=== PATIENT | female | born 1935 | race Caucasian/White ===

== ENCOUNTER → 2017-12-22 14:35 | Outpatient (CLI) | payer MEDICARE, SELFPAY ==
--- NOTE | 2017-12-22 15:14 | ECHOD_ITS ---
Version 2 Reason For Study: dyspnea/SOB Procedure This was a 2D Doppler, Color Flow transthoracic echocardiogram. Exam performed in department. PT was seen by Dr. Valerio re: BP 196/94. Left Ventricle Normal LV size. Sigmoid septum. Left ventricular systolic function is normal. The estimated ejection fraction is 60 %. Transmitral and pulmonary venous doppler flow suggestive of elevated left atrial pressure. Transmitral diastolic flow velocities suggest mild (stage 1) diastolic dysfunction (reversed pattern). No regional wall motion abnormalities noted. Right Ventricle Normal RV size. Normal systolic function. Atria Normal left atrium. Normal right atrium. Mitral Valve Normal mitral valve. Mild-Moderate (1-2+) eccentric mitral valve insufficiency. Tricuspid Valve Normal tricuspid valve. Trivial tricuspid valve insufficiency. Aortic Valve Trisinus/trileaflet aortic valve. Mild focal aortic valve calcification. Peak aortic valve gradient 20 mmHg. Mean aortic valve gradient 11 mmHg. Mild aortic stenosis. Pulmonic Valve Normal pulmonic valve. Great Vessels Normal aortic root. The pulmonary artery is normal size. Normal inferior vena cava. Pericardium/Pleural No pericardial effusion. MMode/2D Measurements & Calculations LVIDd: 4.0 cm IVSd: 1.6 cm LVOT diam: 2.2 cm LVIDs: 3.0 cm LVPWd: 1.2 cm LVOT area: 4.0 cm2 RVDd: 2.7 cm FS: 24.4 % Ao root diam: 2.8 cm LAV(MOD-bp): 73.6 ml Aortic Valve Planimetry: 2.0 cm2 LA dimension: 4.4 cm LAV(MOD-bp) Indexed: 37.1 ml/m2 LAV(MOD-sp2): 63.4 ml LAV(MOD-sp4): 70.1 ml LA A4 area: 19.3 cm2 RA A4 area: 14.2 cm2 Time Measurements MV dec time: 0.15 sec Doppler Measurements & Calculations MV E max juan: 82.9 cm/sec Lat Peak E' Juan: 5.4 cm/sec Med Peak E' Juan: 3.8 cm/sec MV A max juan: 128.2 cm/sec E/E' lat: 15.3 E/E' med: 21.8 MV E/A: 0.65 Ao V2 max: 227.2 cm/sec LV V1 max: 116.1 cm/sec SV(LVOT): 100.7 ml Ao max P.7 mmHg LV V1 max P.4 mmHg Ao V2 mean: 161.0 cm/sec LV V1 mean P.0 mmHg Ao mean P.3 mmHg LV V1 mean: 82.4 cm/sec Ao V2 VTI: 47.1 cm LV V1 VTI: 25.4 cm MICHALE(I,D): 2.1 cm2 MICHAEL(V,D): 2.0 cm2 PA V2 max: 84.4 cm/sec TR max juan: 183.8 cm/sec TR max P.5 mmHg Interpretation Summary Normal LV size. Sigmoid septum. Left ventricular systolic function is normal. The estimated ejection fraction is 60 %. Mild focal aortic valve calcification. Mild aortic stenosis. Transmitral diastolic flow velocities suggest mild (stage 1) diastolic dysfunction (reversed pattern). Ordering Physician: Alejandro Valerio Referring Physician: Kwadwo Ambriz Performed By: Alejandrina Flannery RDCS, RVT
--- NOTE | 2017-12-22 15:16 | RAD_ITS ---
STUDY: X-RAY CHEST REASON FOR EXAM: Female, 82 years old. Shortness of breath and dyspnea. TECHNIQUE: PA and lateral views of the chest. COMPARISON: None. FINDINGS: There is hyperinflation of the lungs consistent with chronic obstructive lung disease (COPD). Lungs are clear. There is no demonstrated pleural abnormality. There is mild cardiac enlargement. Normal mediastinum and porfirio. Normal visualized pulmonary arteries. Normal visualized aortic arch and descending thoracic aorta. There are diffuse degenerative changes of the visualized thoracic spine. There is degenerative osteoarthritis of the bilateral shoulders. There is no demonstrated abnormality of the visualized soft tissue structures of the upper abdomen. RAD/Chest PA and Lateral IMPRESSION: No acute cardiopulmonary disease Electronically Signed: Morales Martinez DO at 16:01 EDT Tel , Service support ,
[2017-12-22 15:34] LABS: Absolute Lymphocyte Count 1.72 X10^3/ul (0.83-4.51); Absolute Neutrophil Count 4.1 X10^3/uL (2.0-7.7); Basophil# 0.04 X10^3/uL; Basophil% 0.6 % (0-1); Eosinophil# 0.14 X10^3/uL; Hematocrit 45.8 % (37-47); Hemoglobin 15.2 g/dl (12.0-15.0); Lymphocyte # 1.72 X10^3/ul (4.0); Mean Corp Hgb Conc 33.2 g/gl (32-36); Mean Corpuscular Hgb 29.7 pg (27.0-32.0); Mean Corpuscular Volume 89.5 fL (81-99); Mean Platelet Vol. 10.9 fl (6.2-12.0); Monocyte# 0.88 X10^3/uL; Monocyte% 12.8 % (0-10); Neutrophil # 4.09 X10^3/uL (2.7-7.7); Neutrophil % 59.3 % (47-70); Platelet Count 201 K/mm3 (150-450); RBC Distribution Width CV 13.7 % (11.6-14.6); RBC Distribution Width SD 44.3 fl (35.1-43.9); Red Blood Count 5.12 M/mm3 (4.2-5.4); White Blood Count 6.9 K/mm3 (4.4-11.0)
[2017-12-22 15:35] LABS: POSITIVE COUNT NO; POSITIVE DIFFERENTIAL NO; POSITIVE MORPHOLOGY NO
[2017-12-22 16:14] LABS: BNP,B-Type NATRIURETIC PEPTIDE 128.7 pg/mL (0-100)
[2017-12-22 16:15] LABS: Anion Gap 6 (5-15); BUN 20 mg/dL (7-18); BUN/Creat Ratio 22.9 RATIO (10-20); Calcium,Total 8.9 mg/dL (8.5-10.1); Chloride 103 mmol/L (98-107); Creatinine, Serum 0.88 mg/dL (0.55-1.02); EST Glomerular Filtration Rate 66 mL/min (>60); Est Glom Filt Rate - Afr Amer 80 mL/min (>60); Glucose 95 mg/dL (74-106); Potassium 3.3 mmol/L (3.5-5.1); Sodium Level 139 mmol/L (136-145)
[2017-12-22 16:30] LABS: International Normalized Ratio 1.1
== END ==
PROVIDERS: Family Provider Family Medicine; PCP Family Medicine; Visit Provider Internal Medicine Cardiovascular Disease
DX: R06.00 Dyspnea, unspecified (principal); R06.01 Orthopnea; R06.02 Shortness of breath
CPT/HCPCS: 36415; 71046; 80048; 83880; 85025; 85610; 93306

== ENCOUNTER 2017-12-23 06:46 | Day surgery (SDC) | payer MEDICARE, SELFPAY ==
[2017-12-22 09:41] VITALS: BMI 35.6
[2017-12-23] VITALS (17 sets, daily range): BP systolic 121–179; BP diastolic 65–128; PULSE 67–81; RESP 12–25; TEMP 36.3–37; O2SAT 93–97; BMI 34.3
--- NOTE | 2017-12-23 08:29 | CL.D_ITS ---
Patient Name: DAVID ROMERO Study Date: 12/23/2017 Performing: Alejandro Valerio MD Ht: 64.17 inches 163 cm : 1935 Wt: 207.23 lbs 94 kg Age: 82 Gender: female BSA: 1.99 PROCEDURE(S) PERFORMED NE16-GKU/COR/LV CLINICAL PROFILE AND INDICATIONS INDICATIONS: Stable Angina CCS Class I Stress/Imaging Standard Exercise Stress Test: Yes Result: Positive High Risk Angina Classification Anginal Classification w/in 2 Weeks: CCS II CAD Presentations: Stable angina. CONCLUSIONS Severe coronary artery disease involving the mid left anterior descending artery and a large proximal diagonal branch. RECOMMENDATIONS Referred for immediate PCI DESCRIPTION OF PROCEDURE The patient arrived to the procedure lab. The risks and benefits of the procedure as well as a full d escription of our services here and current unavailability of surgical backup were fully explained to the patient and/or their significant other prior to the catheterization. The Timeout was completed, verifying the correct patient and procedure. The patient's procedural site was prepped and draped in the usual fashion. Local anesthetic was given subcutaneously to right groin region with Lidocaine 2%. Using a modified Seldinger technique, arterial access was obtained via the right femoral artery, a 5 Fr sheath was inserted. Left Coronary Artery selective angiography was performed in multiple views u sing a 5 Fr. JL4 catheter. Right Coronary Artery selective angiography was then performed in multiple views using a 5 Fr. 3DRC (Jason) catheter. Left Ventriculography was performed in OLIVARES projection using a 5 Fr. Pigtail catheter. LV to AO pullback pressures were then recorded. CORONARY ANGIOGRAPHY DOMINANCE: Right Dominant LEFT HEART ASSESSMENT Left Ventricular Ejection Fraction: by LV Gram 60 % Normal LV wall motion Normal Left Ventricular systolic function LEFT MAIN: Angiographically normal LEFT ANTERIOR DECENDING ARTERY: MID LAD: 80 % Stenosis DIAGONAL 1: Ostial - 80 % Stenosis, Proximal - 90 prior to trifurcation COMPLICATIONS PROCEDURE MEDICATIONS Versed 0.5 mg IV Versed 0.5 mg IV Oxygen: 2 L/min via nasal cannula SUMMARY OF HEMODYNAMIC DATA Time AIR REST ECG 07:26:21 AO 193/101 (141) SA 08:05:23 LV 196/0, 24 08:11:44 LV 200/0, 22 08:11:50 LV 194/1, 24 08:12:44 LVp 198/-1, 24 08:12:59 AOp 193/86 (129) 08:13:04 Signed By Alejandro Valerio MD On 12/23/2017 08:29:05 Alejandro Valerio MD
--- NOTE | 2017-12-23 09:53 | CL.I_ITS ---
Patient Name: DAVID ROMERO Study Date: 12/23/2017 Performing: Adan Mclean MD Ht: 64.17 inches 163 cm : 1935 Wt: 207.23 lbs 94 kg Age: 82 Gender: female BSA: 1.99 PROCEDURE(S) PERFORMED [id number] W OR WO PTCA, SINGLE CORONARY ARTERY [id number] W OR WO PTCA, EACH ADD'L ARTERY, SAME MAJOR CLINICAL PROFILE AND CO-MORBIDITIES INDICATIONS: Stable Angina CCS Class I Stress/Imaging Standard Exercise Stress Test: Yes Result: Positive High Risk Angina Classification Anginal Classification w/in 2 Weeks: CCS II CAD Presentations: Stable angina. CONCLUSIONS Successful PTCA/ALEXUS of the to mid DIAG inferior branch with 2.25 x 12 Promus Synergy, post dilated wi th a 2.25 x 8 NC balloon: 85%-->0%, no dissection. Successful PCI with PTCA to the superior branch of diag#1 at bifurcation of diag stent with a 2.0 x 8 Balloon; 75%-->30%, no dissection. Successful PTCA/ALEXUS of the mid LAD with a 3.0 x 12 Promus Synergy, post dilated proximally with a 3.5 x 8 NC Balloon; 75%-->0%, no dissection. Successful PCI with PTCA to the ostial DIAG#1 with a 2.5 x 8 Balloon; 75%-->30%, no dissection. RECOMMENDATIONS Highly recommend quitting all tobacco products Follow up with primary swat team member Risk factor modification ASA Indefinitley Plavix for at least 12 months Routine post interventional care Refer for Outpatient Cardiac Rehab Manual sheath removal per protocol Follow up with Dr. Valerio Successful Mynx closure into RFA. DESCRIPTION OF PROCEDURE The patient arrived to the procedure lab. The risks and benefits of the procedure as well as a full d escription of our services here and current unavailability of surgical backup were fully explained to the patient and/or their significant other prior to the catheterization. The Timeout was completed, verifying the correct patient and procedure. The patient's procedural site was prepped and draped in the usual fashion. Local anesthetic was given subcutaneously to right groin region with Lidocaine 2% Using a modified Seldinger technique,arterial access was obtained via the right femoral artery, a 5Fr sheath was inserted. Left Coronary Artery selective angiography was performed in multiple views usin g a 5 Fr. JL4 catheter. Right Coronary Artery selective angiography was then performed in multiple vi ews using a 5 Fr. 3DRC (Jason) catheter. Left Ventriculography was performed in OLIVARES projection usi ng a 5 Fr. Pigtail catheter. LV to AO pullback pressures were then recorded.The images were reviewed and options discussed. A decision was then made to proceed with an Intervention, IVUS or other adjunc t procedure. Arterial sheath was exchanged for a 6 Fr Sheath EBU03.75 Guide catheter was inserted and engaged into the LCA. BMW Guide wire was advanced to the 2nd Diagonal. 2.00X8 EMERGE Balloon catheter was inserte d. Balloon catheter was advanced across lesion in the first diagonal, mid PTCA balloon inflated at 6 atms for 6 secs PTCA balloon inflated at 6 atms for 13 secs PTCA balloon inflated at 10 atms for 12 s ecs Balloon catheter was repositioned to additional lesion in the first diagonal, ostial. PTCA balloo n inflated at 6 atms for 6 secs BMW Guide wire was inserted as a lucio wire TO DIAG 1 SUPERIOR BRANCH 2.0X8 EMERGE Balloon catheter was inserted. Balloon catheter was advanced across lesion in the first diagonal, mid. PTCA balloon inflated at 6 atms for 15 secs 2.25X12 SYNERGY Drug Eluting stent was in serted Drug Eluting stent was advanced across the lesion in the first diagonal, mid. 2.25X8 NC EMERGE Balloon catheter was inserted post stent. Angiogram performed post balloon dilatation. 2.25X8 NC ALFA RGE Balloon catheter was reinserted BMW Guide wire was repositioned to the 1st Diagonal SUPERIOR BRAN CH BMW Guide wire was repositioned to the LAD 2.00X8 EMERGE Balloon catheter was inserted. Balloon ca theter was advanced across lesion in the first diagonal, SUPERIOR BRANCH PTCA balloon inflated at 6 a tms for 12 secs Angiogram performed post balloon dilatation. 2.00X8 EMERGE Balloon catheter was inser justice. Balloon catheter was advanced across lesion in the LAD, mid. PTCA balloon inflated at 12 atms fo r 10 secs 3.00X12 SYNERGY Drug Eluting stent was inserted Drug Eluting stent was advanced across the lesion in the LAD, mid. 3.5X8 NC EMERGE Balloon catheter was inserted post stent. BMW Guide wire was repositioned to the 1st Diagonal 2.50X8 EMERGE Balloon catheter was inserted. Balloon catheter was ad vanced across lesion in the first diagonal, ostial. BMW Guide wire was repositioned to the LAD FROM D IAG 1 SUPERIOR BRANCH PTCA balloon inflated at 6 atms for 45 secs PTCA balloon inflated at 6 atms for 10 secs Angiogram performed post balloon dilatation.. . The arterial sheath was pulled and a Mynx c losure device was deployed for hemostasis. INTERVENTION INFORMATION LESION SITE: 2nd Diagonal (Mid) Lesion Complexity: High/C, lesion at bifurcation: Yes, thrombus present: No, lesion length: 12 mm, cu lprit lesion: Yes Pre Stenosis: 85 % Pre intervention ABIEL flow: 3 PROCEDURE: Drug Eluting Stent with pre and post dilatation Post Stenosis: 0 % Post intervention ABIEL flow: 3 Lesion Devices: Tse .014 BMW [place] Straight 190cm Tse .014 BMW [place] Straight 190cm Medtronic 6 Fr EBU3.75 100cm Guide Catheter Jac Sci EMERGE MR 2.00x08 BALLOON Jac Sci Synergy MR ALEXUS 2.25x12 Jac Sci NC EMERGE MR 2.25x08 BALLOON LESION SITE: 1st Diagonal (Ostial) Lesion Complexity: High/C, lesion at bifurcation: Yes, thrombus present: No, culprit lesion: No Pre Stenosis: 75 % Pre intervention ABIEL flow: 3 PROCEDURE: Drug Eluting Stent with pre and post dilatation Post Stenosis: 0 % Post intervention ABIEL flow: 3 Lesion Devices: Tse .014 BMW [place] Straight 190cm Tse .014 BMW [place] Straight 190cm Medtronic 6 Fr EBU3.75 100cm Guide Catheter Jac Sci EMERGE MR 2.00x08 BALLOON Jac Sci EMERGE MR 2.50x08 BALLOON LESION SITE: LAD (Mid) Lesion Devices: Tse .014 BMW [place] Straight 190cm Tse .014 BMW [place] Straight 190cm Medtronic 6 Fr EBU3.75 100cm Guide Catheter Jac Sci EMERGE MR 2.00x08 BALLOON Jac Sci Synergy MR ALEXUS 3.00x12 Jac Sci NC EMERGE MR 3.50x08 BALLOON COMPLICATIONS No Complications PROCEDURE MEDICATIONS Versed 0.5 mg IV Versed 0.5 mg IV Oxygen: 2 L/min via nasal cannula Heparin 6000 unit(s) IV 12/23/2017 08:37:04 Nitro 200 mcg IC 12/23/2017 08:39:08 Nitro glycerin 25mg / 250ml D5W @ 5 mcg/min IV started 12/23/2017 08:46:44 Nitro 200 mcg IC 12/23/2017 08:50:20 Nitro 200 mcg IC 12/23/2017 09:05:10 Nitro 200 mcg IC 12/23/2017 09:12:38 Nitro 200 mcg IC 12/23/2017 09:20:55 IV Bolus: .9 NaCl 250 ml total 12/23/2017 09:31:08 SUMMARY OF HEMODYNAMIC DATA Time AIR REST ECG 07:26:21 AO 193/101 (141) SA 08:05:23 LV 196/0, 24 08:11:44 LV 200/0, 22 08:11:50 LV 194/1, 24 08:12:44 LVp 198/-1, 24 08:12:59 AOp 193/86 (129) 08:13:04 AO 213/106 (152) 08:38:09 Signed By Adan Mclean MD On 12/23/2017 9:52:55 AM Adan Mclean MD
--- NOTE | 2017-12-23 10:00 | EKG12_ITS ---
Test Reason : POST PCI Blood Pressure : / mmHG Vent. Rate : 077 BPM Atrial Rate : 077 BPM P-R Int : 214 ms QRS Dur : 140 ms QT Int : 476 ms P-R-T Axes : 065 -76 061 degrees QTc Int : 538 ms Sinus rhythm with 1st degree A-V block Right bundle branch block Left anterior fascicular block Bifascicular block Voltage criteria for left ventricular hypertrophy Abnormal ECG Confirmed by LUAN SHIELDS, ERIN ([id number]), newspaper editor NOÉ ROBERTS ([id number]) on 12/25/2017 2:51:28 PM Referred By: Erin Valerio Confirmed By:ERIN VALERIO MD
[2017-12-23] MEDS: 0.9% Normal Saline 1,000 ML 150 ML IV (10:15)
[2017-12-23 10:51] LABS: ACT Activated Clotting Time 241 sec (74-137)
[2017-12-23 11:00] LABS: Mean Corp Hgb Conc 31.8 g/gl (32-36); Mean Corpuscular Hgb 29.2 pg (27.0-32.0); Mean Corpuscular Volume 91.7 fL (81-99); Mean Platelet Vol. 10.6 fl (6.2-12.0); Platelet Count 189 K/mm3 (150-450); RBC Distribution Width CV 13.5 % (11.6-14.6); RBC Distribution Width SD 44.8 fl (35.1-43.9); Scan Indicated on CBC? Y/N NO; White Blood Count 7.5 K/mm3 (4.4-11.0)
[2017-12-23 11:16] LABS: CPK Total, Creatine Kinase 53 U/L (26-192)
[2017-12-23 13:14] LABS: M R Staph aureus DNA By PCR Negative (Negative); Probe Check PASS; Specimen Processing Control PASS
--- NOTE | 2017-12-23 13:27 | CRPHASE1 ---
Patient Data/Charges Former Patient:: Phase I Racebook Writer:: Adan Mclean Phase I Charge:: Level I - Education Risk Factors/Lifestyle Smoking Status: Never smoker Hx Hypertension: Yes - ON MEDS Hx Diabetes Mellitus Type 2: No Post-Menopausal: Yes ETOH: No Caffeine: Yes Substance Abuse: No Risk Factor for Sedentary Lifestyle: Lowest Risk Family History: Family History (Last Reviewed 12/16/17 @ 15:12 by Alejandro Valerio MD) Mother Myocardial infarction Father Heart disease Phase I Education Given On:: [place], Nutrition, Antiplatelet medication, CHF Issues Affecting Care:: None Knowledge of Condition:: Yes Hospital Course Pain Description: Tightness Pain Intensity: 2 Cardiac Cath Date:: 12/23/17 Medical/Surgical History WI:: No Angina:: Yes CAD:: No Cardiomyopathy:: No Valve Disease/Replacement:: No Pulmonary:: No COPD:: No Asthma:: No DAMIEN:: No Diabetes:: No Hypertension:: Yes - MEDS Dyslipidemia:: No Arrhythmias:: No Arthritis:: No GI:: Yes GERD:: Yes - TAKES TUMS Cancer:: No Renal:: No Thyroid:: No Depression:: No Anxiety:: No Discharge/Home/Social Eval Discharge Disposition: Home Marital Status: -
--- NOTE | 2017-12-23 13:33 | CRPHASE1_ITS ---
Patient Data/Charges Former Patient:: Phase I Community Education Coordinator:: Adan Mclean Phase I Charge:: Level I - Education Risk Factors/Lifestyle Smoking Status: Never smoker Hx Hypertension: Yes - ON MEDS Hx Diabetes Mellitus Type 2: No Post-Menopausal: Yes ETOH: No Caffeine: Yes Substance Abuse: No Risk Factor for Sedentary Lifestyle: Lowest Risk Family History: Family History (Last Reviewed 12/16/17 @ 15:12 by Alejandro Valerio MD) Mother Myocardial infarction Father Heart disease Phase I Education Given On:: [place], Nutrition, Antiplatelet medication, CHF Issues Affecting Care:: None Knowledge of Condition:: Yes Hospital Course Pain Description: Tightness Pain Intensity: 2 Cardiac Cath Date:: 12/23/17 Medical/Surgical History PR:: No Angina:: Yes CAD:: No Cardiomyopathy:: No Valve Disease/Replacement:: No Pulmonary:: No COPD:: No Asthma:: No DAMIEN:: No Diabetes:: No Hypertension:: Yes - MEDS Dyslipidemia:: No Arrhythmias:: No Arthritis:: No GI:: Yes GERD:: Yes - TAKES TUMS Cancer:: No Renal:: No Thyroid:: No Depression:: No Anxiety:: No Discharge/Home/Social Eval Discharge Disposition: Home Marital Status: -
--- NOTE | 2017-12-23 13:34 | CRPH1.INSTRU ---
General Education CAD and cardiac anatomy and function:: Patient communicates acknowledgment Explanation of diagnoses and procedures:: Patient communicates acknowledgment Sign/Symptoms of MT:: Patient communicates acknowledgment Antiplatelet therapy: Patient communicates acknowledgment Proper use of NTG-SL: Patient communicates acknowledgment Emergency procedures and activation of EMS: Patient communicates acknowledgment Compliance of all prescribed medications: Patient communicates acknowledgment Smoking Patient Nicotine/Smoking Risk Factors Are:: Never smoked Dyslipidemia Recommendations Include:: Lipid profile not available Overweight/Obesity Patient Overweight/Obesity Risk Factors Are:: Overweight = 26-29 Overweight/Obesity:: Patient communicates acknowledgment Hypertension Recommendations Include:: Maintain BP <130/85 Hypertension:: Patient communicates acknowledgment Heart Disease Patient Heart Disease Risk Factors Are:: Family history of heart disease < 65 years old Heart Disease Response Code:: Patient communicates acknowledgment Diabetes Patient Diabetes Risk Factors Are:: No documented hx of diabetes Metabolic Syndrome Patient Metabolic Syndrome Risk Factors Are [3 of 5]:: Hypertension Recommendations Include:: Does not meet criteria Metabolic Syndrome Response Code:: Patient communicates acknowledgment Sedentary Recommendations Include:: Benefits of regular exercise, Discussed home walking program Sedentary Response Code:: Patient communicates acknowledgment Stress Patient Stress Risk Factors Are:: Patient denies stress as a risk factor
[2017-12-23 17:13] LABS: Hematocrit 42.4 % (37-47); Hemoglobin 13.4 g/dl (12.0-15.0); Mean Corp Hgb Conc 31.6 g/gl (32-36); Mean Corpuscular Hgb 29.1 pg (27.0-32.0); Mean Corpuscular Volume 92.2 fL (81-99); Mean Platelet Vol. 10.8 fl (6.2-12.0); Platelet Count 188 K/mm3 (150-450); RBC Distribution Width CV 13.7 % (11.6-14.6); RBC Distribution Width SD 46.1 fl (35.1-43.9); White Blood Count 8.6 K/mm3 (4.4-11.0)
[2017-12-23 17:14] LABS: CPK Total, Creatine Kinase 54 U/L (26-192); Scan Indicated on CBC? Y/N NO
[2017-12-23] MEDS: amLODIPine 5 MG Tablet PO (20:59)
[2017-12-23] MEDS: Atorvastatin Calcium 20 MG Tablet PO (20:59)
[2017-12-23 21:19] LABS: Hematocrit 41.5 % (37-47); Hemoglobin 13.5 g/dl (12.0-15.0); Mean Corp Hgb Conc 32.5 g/gl (32-36); Mean Corpuscular Hgb 29.7 pg (27.0-32.0); Mean Corpuscular Volume 91.4 fL (81-99); Mean Platelet Vol. 10.5 fl (6.2-12.0); Platelet Count 176 K/mm3 (150-450); RBC Distribution Width CV 13.7 % (11.6-14.6); RBC Distribution Width SD 44.9 fl (35.1-43.9); Red Blood Count 4.54 M/mm3 (4.2-5.4); White Blood Count 8.7 K/mm3 (4.4-11.0)
[2017-12-23 21:42] LABS: CPK Total, Creatine Kinase 48 U/L (26-192)
[2017-12-23 21:54] LABS: Scan Indicated on CBC? Y/N NO
[2017-12-24] VITALS (9 sets, daily range): BP systolic 140–195; BP diastolic 59–90; PULSE 78–94; RESP 17–22; TEMP 36.5–36.9; O2SAT 92–98
[2017-12-24] MEDS: Acetaminophen 325 MG Tablet 650 MG PO (00:50)
[2017-12-24] MEDS: Nitroglycerin Oint 1 INCH PACKET TRANSDERM. (00:50)
[2017-12-24 04:49] LABS: Hematocrit 40.2 % (37-47); Mean Corp Hgb Conc 32.3 g/gl (32-36); Mean Corpuscular Hgb 29.5 pg (27.0-32.0); Mean Corpuscular Volume 91.4 fL (81-99); Mean Platelet Vol. 10.5 fl (6.2-12.0); Platelet Count 171 K/mm3 (150-450); RBC Distribution Width CV 13.6 % (11.6-14.6); RBC Distribution Width SD 45.4 fl (35.1-43.9)
[2017-12-24 04:52] LABS: Scan Indicated on CBC? Y/N NO
[2017-12-24 05:03] LABS: Anion Gap 6 (5-15); BUN 15 mg/dL (7-18); BUN/Creat Ratio 17.3 RATIO (10-20); Calcium,Total 8.2 mg/dL (8.5-10.1); Chloride 106 mmol/L (98-107); Cholesterol 116 mg/dL (200); Creatinine, Serum 0.86 mg/dL (0.55-1.02); EST Glomerular Filtration Rate 67 mL/min (>60); Est Glom Filt Rate - Afr Amer 81 mL/min (>60); Estimated Creatinine Clearance 46.95 ml/min; Glucose 106 mg/dL (74-106); High Density Lipoprotein 36 mg/dL; Potassium 3.9 mmol/L (3.5-5.1); Sodium Level 141 mmol/L (136-145); Triglycerides 74 mg/dL; Very Low Density Lipoprotein 15 mg/dL (5-40)
[2017-12-24] MEDS: Clopidogrel Bisulfate 75 MG Tablet PO (07:56)
[2017-12-24] MEDS: Aspirin E.C. 81 MG Tablet PO (07:56)
[2017-12-24] MEDS: HYDROCHLOROTHIAZIDE 12.5 MG CAPSULE PO (07:56)
[2017-12-24] MEDS: Metoprolol(XL)Succ 50 MG Tablet PO (07:58)
[2017-12-24] MEDS: amLODIPine 10 MG Tablet PO (07:58)
--- NOTE | 2017-12-24 08:22 | PCM.PN.CARD ---
Subjectve: Patient seen and evaluated. Doing much better today. No chest pain groin site looks good. Blood pressure is elevated. Objective: Vital Signs Temp Pulse Resp BP Pulse Ox 97.7 F L 80 20 H 195/90 H 96 12/24/17 08:00 12/24/17 08:00 12/24/17 08:00 12/24/17 08:00 12/24/17 08:00 Oxygen Delivery Method Room Air Weight: 214 lb 11.684 oz Body Mass Index (BMI) 34.3 Intake and Output for Last 24 Hours 12/22/17 12/23/17 12/24/17 23:59 23:59 23:59 Intake Total 1950 / 1950 200 / 200 Output Total 800 / 800 400 / 400 Balance 1150 / 1150 -200 / -200 General: Awake, Alert, Oriented x 3 HEENT: PERRL, EOMI, Sclera Non Icteric Neck: Supple, Good ROM, No Lymph Node Enlargement Lungs: Clear to auscultation Cardiovascular: Regular Rhythm, Normal S1, Normal S2, No Murmurs, No Rubs, No Gallops Vascular: No Carotid Bruits, Normal Femoral Pulses, Normal Radial Pulses, Normal Dorsalis Pedal Pulse, Normal Posterior Tibial Pulses Abdomen: Bowel Sounds Present, Soft, Non Tender, No HSM, No Organomegaly Extremities: No Cyanosis, No Clubbing, No edema Neurological: No Focal Motor or Sensory Deficit 12/23/17 10:30: WBC 7.5, RBC 4.80, Hgb 14.0, Hct 44.0, MCV 91.7, MCH 29.2, MCHC 31.8 L, RDW 13.5, RDW Differential 44.8 H, Plt Count 189, MPV 10.6 12/23/17 16:40: WBC 8.6, RBC 4.60, Hgb 13.4, Hct 42.4, MCV 92.2, MCH 29.1, MCHC 31.6 L, RDW 13.7, RDW Differential 46.1 H, Plt Count 188, MPV 10.8 12/23/17 21:10: WBC 8.7, RBC 4.54, Hgb 13.5, Hct 41.5, MCV 91.4, MCH 29.7, MCHC 32.5, RDW 13.7, RDW Differential 44.9 H, Plt Count 176, MPV 10.5 12/24/17 04:40: WBC 10.0, RBC 4.40, Hgb 13.0, Hct 40.2, MCV 91.4, MCH 29.5, MCHC 32.3, RDW 13.6, RDW Differential 45.4 H, Plt Count 171, MPV 10.5 12/24/17 04:40: Sodium 141, Potassium 3.9, Chloride 106, Carbon Dioxide 29.0, Anion Gap 6, BUN 15, Creatinine 0.86, Est GFR (MDRD) Af Amer 81, Est GFR (MDRD) Non-Af 67, BUN/Creatinine Ratio 17.3, Glucose 106, Calcium 8.2 L, Triglycerides 74, Cholesterol 116, LDL Cholesterol 65, VLDL Cholesterol 15, HDL Cholesterol 36 L Rhythm: EKG: Normal sinus rhythm with no acute changes. Medical Necessity - Tobacco Use Smoking Status: Never smoker Assessment/Plan 1. Coronary artery disease. Patient presented with shortness of breath and underwent a cardiac catheterization which demonstrated a high-grade mid left anterior descending artery lesion as well as a high-grade first diagonal vessel stenosis. The circumflex artery and the right coronary artery were free of significant disease. She underwent successful angioplasty and stent placement to the mid left anterior descending artery, the mid diagonal vessel, and a plain old balloon angioplasty to the ostium of the first diagonal vessel. Overnight she did well except for elevated blood pressure. She has had no chest pain no shortness of breath. Hemoglobin has remained stable with no significant drop and creatinine has remained stable with no significant rise. The plan at this time would be to continue her on aggressive medical therapy with beta-jose aspirin clopidogrel and statin. 2. Hypertension The patient's blood pressure still remains out of control. My recommendation will be to increase her Toprol to 50 mg once a day Add Hyzaar Norvasc 10 mg a day. The above prescriptions will be called to [facility] pharmacy. The patient can be discharged later today.
--- NOTE | 2017-12-24 08:29 | PCM.DC.CCA ---
Discharge Diet: Low fat/ Low Cholesterol Discharge Activity: Return to Normal Activity Return to work on:: 12/28/17 Call your doctor if your incision/area has: Increased Pain/ Swelling, Increased Redness, Foul Smelling Discharge, Swelling at the incision site Call your doctor if you observe: Fever of 101 or Higher Cleanse incision/area with: Keep Dressing Clean & Dry Additional Dressing/Incision Instructions:: Keep the dressing (bandage) on until the next morning. You may then shower, but do not take a tub bath for 5 days after your test. It is normal to have some tenderness and discomfort at the puncture site. Sometimes bruising also occurs. However, if pain, numbness, or coldness occurs below the puncture site (in your leg, toes, arms or fingers) call your doctor at once. You may have a small, marble sized knot at the puncture site. This is normal. Do not rub it. It will go away in 4-6 weeks. Bleeding can occur from the area where the puncture was done. Blood may spurt or drip from the site. If blood spurts, apply pressure right away to stop bleeding and call 911. Although rare, bleeding into the tissue (hematoma) can also occur. If this happens, a large, firm area goose egg under the skin will appear. If any of these occur, lie down as flat as you can and have someone apply firm pressure to the cath site with a gauze pad or a clean washcloth for 10-15 minutes. Call 911 or go to the Emergency Department. Allergies/Adverse Reactions: Allergies Penicillins Adverse Reaction (Verified 12/22/17 09:49) unknown Medications to take at Discharge aspirin 81 mg tablet,delayed release 81 mg PO QDAY tab 12/16/17 metronidazole 0.75 % topical cream 1 applic TOPICAL BID 12/16/17 rosuvastatin 10 mg tablet 10 mg PO QDAY #90 tab 12/16/17 Clopidogrel Bisulfate [Clopidogrel] 75 mg PO QDAY 12/22/17 Amlodipine [Norvasc] 10 mg PO DAILY #30 tablet 12/24/17 Atorvastatin Calcium [Lipitor] 20 mg PO QHS tablet 12/24/17 Losartan/Hydrochlorothiazide [Hyzaar 50-12.5 Tablet] 1 tab PO DAILY #30 tablet 12/24/17 Metoprolol(XL)Succ [Toprol Xl (Beta Salty)] 50 mg PO DAILY #30 tablet 12/24/17 The following prescriptions were given: Amlodipine [Norvasc] 10 mg PO DAILY #30 tablet Losartan/Hydrochlorothiazide [Hyzaar 50-12.5 Tablet] 1 tab PO DAILY #30 tablet Metoprolol(XL)Succ [Toprol Xl (Beta Salty)] 50 mg PO DAILY #30 tablet Primary Care Physician: Kwadwo Ambriz [Primary Care Provider] - When: [facility] office will make appt Proposed Discharge Date: 12/24/17 Cardiac Rehabilitation Info Cardiac Rehabilitation Program Information: Cardiac Rehabilitation is important for patients like you who are recovering from a heart problem. Cardiac rehabilitation programs are recognized as integral to the continued care of the patient with coronary heart disease. The cardiac rehabilitation program is designed to optimize a patient's physical, psychological, and social functioning. Health medicare interviewer work in cardiac rehabilitation programs and assist you with getting the treatments you need to get stronger and healthier - like exercise, healthy eating habits, and medications. Cardiac rehabilitation has been show to help people with heart problems live longer and have better life enjoyment than people who do not go to cardiac rehabilitation. Please contact the Cardiac Rehabilitation Program at [facility] at in two weeks if you have not heard from them.
--- NOTE | 2017-12-24 08:36 | DCINST_ITS ---
Discharge Diet: Low fat/ Low Cholesterol Discharge Activity: Return to Normal Activity Return to work on:: 12/28/17 Call your doctor if your incision/area has: Increased Pain/ Swelling, Increased Redness, Foul Smelling Discharge, Swelling at the incision site Call your doctor if you observe: Fever of 101 or Higher Cleanse incision/area with: Keep Dressing Clean & Dry Additional Dressing/Incision Instructions:: Keep the dressing (bandage) on until the next morning. You may then shower, but do not take a tub bath for 5 days after your test. It is normal to have some tenderness and discomfort at the puncture site. Sometimes bruising also occurs. However, if pain, numbness, or coldness occurs below the puncture site (in your leg, toes, arms or fingers) call your doctor at once. You may have a small, marble sized knot at the puncture site. This is normal. Do not rub it. It will go away in 4-6 weeks. Bleeding can occur from the area where the puncture was done. Blood may spurt or drip from the site. If blood spurts, apply pressure right away to stop bleeding and call 911. Although rare, bleeding into the tissue (hematoma) can also occur. If this happens, a large, firm area goose egg under the skin will appear. If any of these occur, lie down as flat as you can and have someone apply firm pressure to the cath site with a gauze pad or a clean washcloth for 10-15 minutes. Call 911 or go to the Emergency Department. Allergies/Adverse Reactions: Allergies Penicillins Adverse Reaction (Verified 12/22/17 09:49) unknown Medications to take at Discharge aspirin 81 mg tablet,delayed release 81 mg PO QDAY tab 12/16/17 metronidazole 0.75 % topical cream 1 applic TOPICAL BID 12/16/17 rosuvastatin 10 mg tablet 10 mg PO QDAY #90 tab 12/16/17 Clopidogrel Bisulfate [Clopidogrel] 75 mg PO QDAY 12/22/17 Amlodipine [Norvasc] 10 mg PO DAILY #30 tablet 12/24/17 Atorvastatin Calcium [Lipitor] 20 mg PO QHS tablet 12/24/17 Losartan/Hydrochlorothiazide [Hyzaar 50-12.5 Tablet] 1 tab PO DAILY #30 tablet 12/24/17 Metoprolol(XL)Succ [Toprol Xl (Beta Salty)] 50 mg PO DAILY #30 tablet The following prescriptions were given: Amlodipine [Norvasc] 10 mg PO DAILY #30 tablet Losartan/Hydrochlorothiazide [Hyzaar 50-12.5 Tablet] 1 tab PO DAILY #30 tablet Metoprolol(XL)Succ [Toprol Xl (Beta Salty)] 50 mg PO DAILY #30 tablet Primary Care Physician: Kwadwo Ambriz [Primary Care Provider] - When: [facility] office will make appt Proposed Discharge Date: 12/24/17 Cardiac Rehabilitation Info Cardiac Rehabilitation Program Information: Cardiac Rehabilitation is important for patients like you who are recovering from a heart problem. Cardiac rehabilitation programs are recognized as integral to the continued care of the patient with coronary heart disease. The cardiac rehabilitation program is designed to optimize a patient's physical, psychological, and social functioning. Health day care assistant work in cardiac rehabilitation programs and assist you with getting the treatments you need to get stronger and healthier - like exercise, healthy eating habits, and medications. Cardiac rehabilitation has been show to help people with heart problems live longer and have better life enjoyment than people who do not go to cardiac rehabilitation. Please contact the Cardiac Rehabilitation Program at [facility] at in two weeks if you have not heard from them.
[2017-12-24] MEDS: Losartan Potassium 50 MG Tablet PO (09:10)
--- NOTE | 2017-12-24 10:00 | EKG12_ITS ---
Test Reason : AM EKG Blood Pressure : / mmHG Vent. Rate : 087 BPM Atrial Rate : 087 BPM P-R Int : 220 ms QRS Dur : 128 ms QT Int : 430 ms P-R-T Axes : 066 -53 042 degrees QTc Int : 517 ms Sinus rhythm with 1st degree A-V block Left axis deviation Left ventricular hypertrophy with QRS widening Abnormal ECG When compared with ECG of 23-DEC-2017 10:07, MANUAL COMPARISON REQUIRED, DATA IS UNCONFIRMED Confirmed by LUAN SHIELDS, ERIN ([id number]), technical editor NOÉ ROBERTS ([id number]) on 12/25/2017 2:51:10 PM Referred By: Erin Valerio Confirmed By:ERIN VALERIO MD
== END 2017-12-24 10:35 | disposition home or self-care (01) ==
LOC: CLSP 06:52 → ICU 09:01
PROVIDERS: Internal Medicine Cardiovascular Disease; Family Provider Family Medicine; PCP Family Medicine; Visit Provider Internal Medicine Cardiovascular Disease
DX: I25.10 Atherosclerotic heart disease of native coronary artery without angina pectoris (principal); R06.02 Shortness of breath; I35.0 Nonrheumatic aortic (valve) stenosis; I10 Essential (primary) hypertension; E78.5 Hyperlipidemia, unspecified; G47.33 Obstructive sleep apnea (adult) (pediatric); I45.10 Unspecified right bundle-branch block; E78.00 Pure hypercholesterolemia, unspecified; R07.9 Chest pain, unspecified; R94.31 Abnormal electrocardiogram [ECG] [EKG]; Z79.82 Long term (current) use of aspirin
CPT/HCPCS: 80048; 80061; 82550; 85027; 85347; 87641; 92928; 92929; 93005; 93458; 99152; 99153; J7030; J7040; Q9967; C1725; C1769; C1874; C1887; C9600; C9601

== ENCOUNTER → 2018-02-18 10:36 | Outpatient (CLI) | payer MEDICARE, SELFPAY ==
[2018-02-18 11:42] LABS: AST(SGOT) 36 U/L (15-37); Alanine Aminotransfer ALT/SGPT 36 U/L (13-56); Albumin, Serum 3.3 g/dL (3.2-5.0); Alkaline Phosphatase 76 U/L (45-117); Bilirubin, Direct 0.09 mg/dL (0.00-0.30); Cholesterol 147 mg/dL (200); Globulin 4.3 g/dL (2.2-4.2); High Density Lipoprotein 47 mg/dL; Protein, Total 7.6 g/dL (6.4-8.2); Triglycerides 163 mg/dL; Very Low Density Lipoprotein 33 mg/dL (5-40)
== END ==
PROVIDERS: Family Provider Family Medicine; PCP Family Medicine; Visit Provider Physician Assistant Medical
DX: I25.10 Atherosclerotic heart disease of native coronary artery without angina pectoris (principal); I10 Essential (primary) hypertension; I35.0 Nonrheumatic aortic (valve) stenosis; E78.00 Pure hypercholesterolemia, unspecified
CPT/HCPCS: 36415; 80061; 80076

== ENCOUNTER → 2018-12-01 08:43 | Outpatient (CLI) | payer MEDICARE, SELFPAY ==
[2018-05-21 09:12] VITALS: BMI 32.1
[2018-12-01 10:15] LABS: AST(SGOT) 27 U/L (15-37); Alanine Aminotransfer ALT/SGPT 26 U/L (13-56); Albumin, Serum 3.2 g/dL (3.2-5.0); Alkaline Phosphatase 71 U/L (45-117); Bilirubin, Direct 0.14 mg/dL (0.00-0.30); Cholesterol 151 mg/dL (200); High Density Lipoprotein 46 mg/dL; Protein, Total 7.2 g/dL (6.4-8.2); Triglycerides 147 mg/dL; Very Low Density Lipoprotein 29 mg/dL (5-40)
== END ==
PROVIDERS: Family Provider Family Medicine; PCP Family Medicine; Referring Provider Physician Assistant Medical; Visit Provider Physician Assistant Medical
DX: E78.5 Hyperlipidemia, unspecified (principal)
CPT/HCPCS: 36415; 80061; 80076

== ENCOUNTER 2019-08-07 13:02 | Emergency (ER) | payer MEDICARE, SELFPAY ==
[2019-06-21 12:57] VITALS: BMI 33.4
[2019-08-07 13:04] VITALS: BP 177/88; PULSE 80; RESP 22; TEMP 36.8; O2SAT 98; BMI 34.4
--- NOTE | 2019-08-07 13:08 | CT_ITS ---
STUDY: CT ABDOMEN AND PELVIS WITHOUT CONTRAST REASON FOR EXAM: Female, 84 years old. Abdominal pain with diarrhea RADIATION DOSAGE (If Supplied By Facility): CTDIvol = ( 12.28 ) mGy, DLP = ( 610.63 ) mGycm TECHNIQUE: Transaxial images were obtained from the dome of the diaphragm to the symphysis pubis without oral contrast, and without intravenous contrast. Sagittal and coronal images were reconstructed. Individualized dose optimization techniques were used for this CT. COMPARISON: None. FINDINGS: The visualized lung bases are unremarkable. The visualized portions of the heart are within normal limits. No hepatic masses. Normal gallbladder and extrahepatic biliary system. There are multiple benign calcified granulomata of the liver. Spleen size is normal. Normal pancreas. Normal bilateral adrenal glands. Normal right kidney. Normal left kidney. Normal visualized stomach. Fluid-filled distal small bowel and colon but no large or small bowel wall thickening. No dilated loops of small bowel. The appendix is visualized and appears normal. There is diffuse atherosclerotic calcification of the abdominal aorta, without a demonstrated aneurysm. Normal inferior vena cava. Normal retroperitoneum. Normal urinary bladder. Normal abdominal wall. There are diffuse degenerative changes of the visualized lumbar spine. CT/Abdomen/Pelvis without Cont IMPRESSION: Distal small bowel and colon intraluminal fluid compatible with diarrheal disease. No large or small bowel wall thickening or obstruction. Electronically Signed: Umair Rutherford MD (Brooks) at 14:25 EST , Service support ,
--- NOTE | 2019-08-07 13:08 | EKG12_ITS ---
Test Reason : SYNCOPE Blood Pressure : / mmHG Vent. Rate : 079 BPM Atrial Rate : 079 BPM P-R Int : 254 ms QRS Dur : 164 ms QT Int : 482 ms P-R-T Axes : 080 -64 099 degrees QTc Int : 552 ms Sinus rhythm with 1st degree A-V block Possible Left atrial enlargement Right bundle branch block Left anterior fascicular block Bifascicular block Left ventricular hypertrophy Cannot rule out Septal infarct , age undetermined Abnormal ECG Confirmed by STANFORD SHIELDS, SUSI ([id number]), sports editor CAR GARNETT ([id number]) on 08/10/2019 10:54:47 AM Referred By: BUNNY Confirmed By:SUSI COYNE MD
--- NOTE | 2019-08-07 13:10 | RAD_ITS ---
STUDY: X-RAY CHEST REASON FOR EXAM: Female, 84 years old. Chest pain TECHNIQUE: AP COMPARISON: 12/22/2017 FINDINGS: EKG leads project over the chest. The lungs are clear and expanded. There is no demonstrated pleural abnormality. Normal size heart. Normal mediastinum and porfirio. Normal visualized pulmonary arteries. There is atherosclerotic calcification of the aortic arch with tortuosity. No acute bony process. There is no demonstrated abnormality of the visualized soft tissue structures of the upper abdomen. RAD/Chest 1 View (Portable) IMPRESSION: 1. Stable, nonacute portable x-ray examination of the chest. Electronically Signed: Umair Rutherford MD (Brooks) at 13:56 EST , Service support ,
[2019-08-07 13:12] VITALS: O2SAT 97
--- NOTE | 2019-08-07 13:32 | ED.VIS.GEN ---
History of Present Illness Chief Complaint: Weakness Informant: Patient Onset: Today Current Severity: Mild Narrative: Patient presents with weakness and diarrhea indicates she went to bed feeling fine woke with a sense of nausea, she was able to eat a bowl of cereal, she went to a restorationist activity where she began having diarrhea and felt very weak to the point she was brought in by EMS. She has intermittent cramping lower abdominal pain associate with a diarrhea, she is had no blood per rectum no antibiotics no tainted food or exposure to sick individuals, she indicates she has no history of any GI ailments, she does have 2 stents in her heart placed a few years ago her cardiovascular status has been stable with no fever cough chest pain her chief complaint is feeling nauseated and a sense of crampy abdominal pain and the need to have diarrhea, she did pass brown diarrheal fluid here in the ED no blood Past Medical History - Allergies and Home Meds Allergies/Adverse Reactions: Allergies Penicillins Adverse Reaction (Verified 08/07/19 13:03) unknown Primary Care Physician: Kwadwo Ambriz MD [Primary Care Provider] - Past Medical History: - - As above Smoking Status: Never smoker Review of Systems General: Denies: Chills, Fever, Sweats Eyes: Denies: Visual changes - bilaterally, Diplopia ENT: Denies: Rhinorrhea, Sore throat Cardiovascular: Denies: Chest pain, Palpitations Respiratory: Denies: Dyspnea, Cough, Dyspnea on exertion Gastrointestinal: Reports: Abdominal pain, Nausea, Diarrhea, - - Nominal cramps associate with diarrhea. Denies: Vomiting, Melena, Hematochezia Genitourinary: Denies: Dysuria, Hematuria, Frequency Musculoskeletal: Denies: Back pain, Extremity Pain Skin: Denies: Rash, Wounds Neurological: Denies: Headache, Weakness, Numbness Physical Exam Vital Signs/Narrative: Vital Signs Temp Pulse Resp BP Pulse Ox 08/07/19 13:12 97 08/07/19 13:04 98.2 F 80 22 H 177/88 H 98 General: Well nourished, Well developed, No Acute Distress Head: Normocephalic, Atraumatic Eyes: Perrl, EOMI ENT: Moist mucous membranes, No rhinorrhea Neck: Supple, Nontender Cardiovascular: Regular rate, Regular rhythm, No murmurs Respiratory: No distress, CTA bilaterally, Chest nontender Abdomen: Soft, Nontender, Nondistended, Normal bowel sounds Back: Nontender, Normal Inspection Extremities: Nontender, No edema Skin: Normal color, No rash Neurological: Alert, Oriented x3, Cranial nerves II-XII grossly intact, Normal Strength, Normal Sensation Psychological: Normal affect, Normal Mood Diagnostic/Tx/Re-eval - Medical Decision Making Patient's vital signs and physical exam is unremarkable she has lower abdominal crampy pain no rebound guarding organomegaly she has no history of any GI ailments such as diverticulitis bowel obstruction etc. she is never had a colonoscopy given all the above screening labs CT IV fluids She is screening labs with a white count of 15,000, potassium 2.8, EKG shows nothing acute sinus rhythm no acute injury pattern appreciated right bundle branch block pattern no old EKG for comparison CT scan shows nothing acute intestines filled with fluid consistent with diarrheal illness see that report Elevation abdomen soft there is no rebound guarding organomegaly her vital signs remained stable she is drinking water discussed all the above with her and her we did send stool for analysis it is not back, she continues to have small episodes of diarrheal stool, we discussed inpatient versus outpatient management she does not wish to be admitted she understands exact etiology of all symptoms are unclear she wants to go home she is not vomiting she received IV fluids oral potassium Follow-up with your outpatient providers to check the analysis of the stool sample for any signs of enteric pathogens requiring further management stay in a bland diet Zofran as needed and return for change in symptoms Home stable declined admission Impression final Diarrhea illness ED Disposition - Plan for ED Patient: Diagnosis: Diarrhea Instructions: WEAKNESS, Unk Cause, Treating Diarrhea Referrals: Kwadwo Ambriz MD [Primary Care Provider] -
[2019-08-07] MEDS: 0.9% Normal Saline 1,000 ML 150 ML IV (13:36)
[2019-08-07 13:45] LABS: AST(SGOT) 21 U/L (15-37); Alanine Aminotransfer ALT/SGPT 27 U/L (13-56); Albumin, Serum 3.4 g/dL (3.2-5.0); Alkaline Phosphatase 87 U/L (45-117); Anion Gap 9 (5-15); BUN 20 mg/dL (7-18); BUN/Creat Ratio 22.5 RATIO (10-20); Bilirubin, Direct 0.12 mg/dL (0.00-0.30); Calcium,Total 9.3 mg/dL (8.5-10.1); Chloride 102 mmol/L (98-107); Creatinine, Serum 0.89 mg/dL (0.55-1.02); EST Glomerular Filtration Rate 65 mL/min (>60); Est Glom Filt Rate - Afr Amer 78 mL/min (>60); Estimated Creatinine Clearance 45.62 ml/min; Globulin 4.1 g/dL (2.2-4.2); Glucose 114 mg/dL (74-106); Lipase 154 U/L (73-393); Potassium 2.8 mmol/L (3.5-5.1); Protein, Total 7.5 g/dL (6.4-8.2); Sodium Level 140 mmol/L (136-145)
[2019-08-07 13:49] LABS: Absolute Lymphocyte Count 1.26 X10^3/uL (0.83-4.51); Absolute Neutrophil Count 11.6 X10^3/uL (2.0-7.7); Basophil# 0.04 X10^3/uL; Basophil% 0.3 % (0-1); Eosinophil# 1.25 X10^3/uL; Eosinophils% 8.3 % (0-5); Hemoglobin 15.8 g/dL (12.0-15.0); Lymphocyte # 1.26 X10^3/ul (4.0); Lymphocyte % 8.3 % (19-41); Mean Corp Hgb Conc 32.9 g/dL (32-36); Mean Corpuscular Hgb 29.4 pg (27.0-32.0); Mean Corpuscular Volume 89.2 fL (81-99); Mean Platelet Vol. 10.2 fl (6.2-12.0); Monocyte# 0.86 X10^3/uL; Monocyte% 5.7 % (0-10); NRBC Flagged by Analyzer 0 % (0-5); Neutrophil # 11.64 X10^3/uL (2.7-7.7); Neutrophil % 77.1 % (47-70); Platelet Count 245 K/mm3 (150-450); RBC Distribution Width CV 13.6 % (11.6-14.6); RBC Distribution Width SD 44.2 fl (35.1-43.9); Red Blood Count 5.38 M/mm3 (4.2-5.4); White Blood Count 15.1 K/mm3 (4.4-11.0)
[2019-08-07 13:58] LABS: Bacteria 0 SEEN /hpf (None Seen); Mucous, Urine 0 SEEN /hpf (<or=2+); Red Blood Cells-Urine 0 SEEN /hpf (0-5); White Blood Cells 0 SEEN /hpf (0-5)
[2019-08-07 14:05] LABS: Color, Urine Yellow (Yellow); Glucose, Dipstick Normal (Normal); Ketone-Dipstick 5 mg/dl (Negative); Leukocyte Esterase-Dipstick Negative /ul (Negative); Nitrite-Dipstick Negative (Negative); Occult Blood-Urine Negative /ul (Negative); Protein-Dipstick Negative (Negative); Urine Bilirubin Dipstick Negative (Negative); Urine Clarity Clear (Clear); Urine Urobilinogen Normal (Normal)
[2019-08-07 14:25] LABS: Squamous Epithelial Cells - UA 0-5 SEEN /hpf (5-10)
[2019-08-07 14:35] VITALS: BP 171/78; PULSE 88; RESP 21
[2019-08-07 15:33] VITALS: BP 183/89; PULSE 87; RESP 16
== END 2019-08-07 15:35 | disposition home or self-care (01) ==
LOC: ED 13:34
PROVIDERS: Emergency Provider Emergency Medicine; Family Provider Family Medicine; PCP Family Medicine
DX: R19.7 Diarrhea, unspecified (principal); I45.10 Unspecified right bundle-branch block; Z88.0 Allergy status to penicillin; R10.30 Lower abdominal pain, unspecified
CPT/HCPCS: 71045; 74176; 80048; 80076; 81001; 83690; 84484; 85025; 87493; 87506; 93005; 96360; 96361; 99285; J7030; A4216

== ENCOUNTER → 2021-07-10 12:39 | Outpatient (CLI) | payer MEDICARE, SELFPAY ==
--- NOTE | 2021-07-10 12:44 | ECHOD_ITS ---
Reason For Study: Murmur Procedure This was a 2D Doppler, Color Flow transthoracic echocardiogram. Patient could not tolerate probe on chest. The study was technically difficult. Exam performed in department. Left Ventricle Normal LV size. Severe concentric left ventricular hypertrophy. Left ventricular systolic function is normal. The estimated ejection fraction is 65 %. Stage 1 diastolic dysfunction. No regional wall motion abnormalities noted. Right Ventricle Normal RV size. Normal systolic function. Atria Normal left atrium. Normal right atrium. Aortic Valve Trisinus/trileaflet aortic valve. Mild focal aortic valve calcification. Peak aortic valve gradient 23 mmHg. Mean aortic valve gradient 12 mmHg. Pulmonic Valve Normal pulmonic valve. Great Vessels Normal aortic root. Pericardium/Pleural No pericardial effusion. MMode/2D Measurements & Calculations LVIDd: 4.0 cm IVSd: 1.9 cm LVOT diam: 2.0 cm LVIDs: 2.2 cm LVPWd: 1.6 cm LVOT area: 3.1 cm2 FS: 45.6 % Ao root diam: 3.1 cm LAV(MOD-bp): 48.5 ml LA dimension: 4.3 cm Aortic Valve Planimetry: 0.90 cm2 LAV(MOD-bp) Indexed: 24.8 ml/m2 LAV(MOD-sp2): 46.9 ml LAV(MOD-sp4): 51.9 ml LA A4 area: 18.0 cm2 RA A4 area: 17.3 cm2 Time Measurements MV dec time: 0.27 sec Doppler Measurements & Calculations MV E max juan: 62.6 cm/sec Lat Peak E' Juan: 2.8 cm/sec Med Peak E' Juan: 2.7 cm/sec MV A max juan: 112.2 cm/sec E/E' lat: 22.0 E/E' med: 23.1 MV E/A: 0.56 MV V2 max: 125.2 cm/sec MV P1/2t max juan: 73.2 cm/sec Ao V2 max: 241.9 cm/sec MV max P.3 mmHg MV P1/2t: 83.4 msec Ao max P.4 mmHg MV V2 mean: 66.8 cm/sec Ao V2 mean: 162.0 cm/sec MV mean P.1 mmHg MV dec slope: 257.1 cm/sec2 Ao mean P.4 mmHg MV V2 VTI: 24.1 cm MVA(P1/2t): 2.6 cm2 Ao V2 VTI: 52.4 cm MVA(VTI): 3.5 cm2 MICHAEL(I,D): 1.6 cm2 MICHAEL(V,D): 1.5 cm2 LV V1 max: 120.1 cm/sec SV(LVOT): 85.6 ml PA V2 max: 118.5 cm/sec LV V1 max P.8 mmHg LV V1 mean P.1 mmHg LV V1 mean: 80.4 cm/sec LV V1 VTI: 28.0 cm ECHO/Echo Complete Interpretation Summary Normal LV size. Severe concentric left ventricular hypertrophy. Left ventricular systolic function is normal. The estimated ejection fraction is 65 %. Stage 1 diastolic dysfunction. Mild focal aortic valve calcification. Mean aortic valve gradient 12 mmHg. Ordering Physician: Desiree Islas Referring Physician: Kwadwo Ambriz Performed By: Harry Burden RCS
== END ==
PROVIDERS: PCP Family Medicine; Visit Provider Physician Assistant Medical
DX: I25.10 Atherosclerotic heart disease of native coronary artery without angina pectoris (principal); I35.0 Nonrheumatic aortic (valve) stenosis
CPT/HCPCS: 93306

== ENCOUNTER 2021-11-28 09:05 | Outpatient (CLI) | payer MEDICARE, SELFPAY ==
--- NOTE | 2021-11-28 09:19 | CDU_ITS ---
Reason For Study: Amaurosis fugax Rt. Velocities/BP Lt. Velocities/BP Prox CCA 74.7/13.4 cm/sec. Prox CCA 67.3/4.7 cm/sec. Mid CCA 68.2/16 cm/sec. Mid CCA 46.5/6.9 cm/sec. Dist CCA 53.9/13.4 cm/sec. Dist CCA 36.2/6.9 cm/sec. Prox ICA 44.6/15.1 cm/sec. Prox ICA 259.5/36.5 cm/sec. Mid ICA 50.7/16.3 cm/sec. Mid ICA 9.9 cm/sec. Dist ICA 47/16.3 cm/sec. Dist ICA 9 cm/sec. Rt. ICA/CCA = 0.74. Lt. ICA/CCA = 5.58. Prox ECA 128.4/4.2 cm/sec. Prox ECA 98.6/9 cm/sec. Rt. Vert. 35.5/9.1 cm/sec. Lt. Vert. 34.3/9 cm/sec. Right Extracranial There is homogeneous, smooth atherosclerotic plaque noted in the right common carotid artery. There is heterogeneous, irregular atherosclerotic plaque noted in the right internal carotid artery. There is homogeneous, smooth atherosclerotic plaque noted in the right external carotid artery. Antegrade flow is noted in the right vertebral artery. Left Extracranial There is homogeneous, smooth atherosclerotic plaque noted in the left common carotid artery. There is heterogeneous, irregular atherosclerotic plaque noted in the left internal carotid artery. String signal noted in the ICA prox with diminished monophasic flow noted distally. There is intimal thickening but no significant atherosclerotic plaque noted in the left external carotid artery. Procedure Carotid Duplex [id number]. This is a Carotid Duplex examination using B-mode, color flow and specral Doppler. Preliminary report to kim Shahid. Exam performed in department. VL/Carotid Duplex Ultrasound Interpretation Summary Heterogenous calcific plaque of the proximal right internal carotid artery with less than 50% stenosis Less than 50% stenosis right external carotid artery Irregular calcific plaque at the proximal left internal carotid artery. 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 Less than 50% stenosis left external carotid artery Patent and antegrade vertebral arteries bilaterally Verbal notification sent to Dr. Fernandez office Ordering Physician: Shabbir Fernandez Referring Physician: Giovana Lopez Performed By: Lilia Brown RVT
--- NOTE | 2021-11-28 09:20 | CT_ITS ---
STUDY: CT BRAIN WITH AND WITHOUT CONTRAST REASON FOR EXAM: Female, 86 years old. MENTAL STATE CHANGE RADIATION DOSAGE (If Supplied By Facility): CTDIvol = ( 44.99 ) mGy, DLP = ( 1682.21 ) mGycm TECHNIQUE: Transaxial CT imaging of the brain was performed pre and post contrast administration. The examination was performed with intravenous administration of IV 50mL Isovue-370. Individualized dose optimization techniques were used for this CT. COMPARISON: None. FINDINGS: Normal soft tissue structures. There is hyperostosis frontalis internus. There is mild cerebral atrophy with widening of the extra-axial spaces and ventricular dilatation. There are areas of decreased attenuation within the white matter tracts of the supratentorial brain, consistent with microvascular disease changes. 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 Normal brainstem. Normal cerebellum. There is no intracranial hemorrhage. There are no findings of an acute ischemic infarction. Calcified plaques of the cavernous portions of the internal carotid arteries bilaterally. Normal visualized paranasal sinuses. CT/Brain/Head W/WO Contrast IMPRESSION: Chronic involutional changes of the brain. 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 Electronically Signed: Shlomo Brito MD at 12:18 EST ,
[2021-11-28 13:01] LABS: CREATININE FINGERSTICK 0.7 mg/dL (0.55-1.02); EGFR FINGERSTICK > 60.0000 mL/min (>60)
== END 2021-11-28 23:59 | disposition home or self-care (01) ==
PROVIDERS: PCP Nurse Practitioner Family; Referring Provider Ophthalmology; Visit Provider Ophthalmology
DX: R29.818 Other symptoms and signs involving the nervous system (principal); G45.3 Amaurosis fugax
CPT/HCPCS: 70470; 93880; Q9967; A4216

== ENCOUNTER → 2023-05-14 | Outpatient (CLI) | payer MEDICARE, SELFPAY ==
[2023-05-14 16:14] LABS: Troponin-I HS 27 pg/mL (3.0-54.0)
== END | disposition home or self-care (01) ==
LOC: PAVLAB 15:17
PROVIDERS: PCP Nurse Practitioner Family; Referring Provider Nurse Practitioner Family; Visit Provider Nurse Practitioner Family
DX: R45.89 Other symptoms and signs involving emotional state (principal); R94.39 Abnormal result of other cardiovascular function study; I25.10 Atherosclerotic heart disease of native coronary artery without angina pectoris
CPT/HCPCS: 36415; 84484

== ENCOUNTER → 2023-09-23 | Outpatient (CLI) | payer MEDICARE, SELFPAY ==
--- NOTE | 2023-09-23 13:15 | ECHOD_ITS ---
Reason For Study: ASHD, Procedure This was a 2D Doppler, Color Flow transthoracic echocardiogram. Exam performed in department. Left Ventricle Normal LV size. Severe concentric left ventricular hypertrophy. Left ventricular systolic function is normal. The estimated ejection fraction is 75 %. Stage 1 diastolic dysfunction. No regional wall motion abnormalities noted. Right Ventricle Normal RV size. Normal systolic function. Atria Normal left atrium. Normal right atrium. Mitral Valve There is mild to moderate mitral annular calcification. Mild (1+) mitral valve insufficiency. Aortic Valve Trisinus/trileaflet aortic valve. Moderate focal aortic valve calcification. Peak aortic valve gradient 40 mmHg. Mean aortic valve gradient 21 mmHg. Moderate aortic stenosis. Mild (1+) aortic valve insufficiency. Great Vessels Normal aortic root. The pulmonary artery is normal size. Normal inferior vena cava. Pericardium/Pleural No pericardial effusion. MMode/2D Measurements & Calculations LVIDd: 3.5 cm IVSd: 2.1 cm LVOT diam: 2.1 cm LVIDs: 2.0 cm LVPWd: 1.9 cm LVOT area: 3.5 cm2 RVDd: 3.5 cm FS: 42.9 % Ao root diam: 3.1 cm LAV(MOD-bp): 60.7 ml LVAd ap4: 24.6 cm2 LAV(MOD-bp) Indexed: 30.5 ml/m2 LVLd ap4: 7.8 cm LAV(MOD-sp2): 53.8 ml EDV(MOD-sp4): 64.2 ml LAV(MOD-sp4): 63.9 ml EDV(sp4-el): 65.9 ml LVAs ap4: 10.6 cm2 LVLs ap4: 6.0 cm ESV(MOD-sp4): 18.2 ml ESV(sp4-el): 16.0 ml EF(MOD-sp4): 71.7 % EF(sp4-el): 75.8 % SV(MOD-sp4): 46.0 ml SV(MOD-sp2): 36.6 ml LVAd ap2: 22.3 cm2 LVLd ap2: 7.2 cm EDV(MOD-sp2): 58.0 ml EDV(sp2-el): 58.5 ml LVAs ap2: 12.6 cm2 LVLs ap2: 6.6 cm ESV(MOD-sp2): 21.4 ml ESV(sp2-el): 20.2 ml EF(MOD-sp2): 63.1 % SV(sp4-el): 49.9 ml LA A4 area: 20.0 cm2 LA dimension(2D): 4.4 cm TAPSE: 1.9 cm RA A4 area: 17.5 cm2 Time Measurements MV dec time: 0.36 sec Doppler Measurements & Calculations MV E max juan: 68.5 cm/sec Lat Peak E' Juan: 3.5 cm/sec Med Peak E' Juan: 3.3 cm/sec MV A max juan: 116.4 cm/sec E/E' lat: 19.8 E/E' med: 20.7 MV E/A: 0.59 MV dec slope: 189.6 cm/sec2 Ao V2 max: 317.5 cm/sec LV V1 max: 125.8 cm/sec Ao max P.5 mmHg LV V1 max P.4 mmHg Ao V2 mean: 218.2 cm/sec LV V1 mean P.4 mmHg Ao mean P.7 mmHg LV V1 mean: 86.1 cm/sec Ao V2 VTI: 72.9 cm LV V1 VTI: 28.7 cm AV (velocity ratio): 0.39 MICHAEL(I,D): 1.4 cm2 MICHAEL(V,D): 1.4 cm2 SV(LVOT): 98.9 ml PA V2 max: 104.3 cm/sec ECHO/Echo Complete Interpretation Summary Normal LV size. Severe concentric left ventricular hypertrophy. Left ventricular systolic function is normal. The estimated ejection fraction is 75 %. Stage 1 diastolic dysfunction. Moderate focal aortic valve calcification. Mean aortic valve gradient 21 mmHg. Moderate aortic stenosis. Ordering Physician: Desiree Islas Referring Physician: Giovana Lopez Performed By: Yeimi Bradshaw RDCS
== END | disposition home or self-care (01) ==
PROVIDERS: PCP Nurse Practitioner Family; Referring Provider Physician Assistant Medical; Visit Provider Physician Assistant Medical
DX: I25.10 Atherosclerotic heart disease of native coronary artery without angina pectoris (principal); I35.0 Nonrheumatic aortic (valve) stenosis
CPT/HCPCS: 93306

== ENCOUNTER 2024-01-10 10:30 | Inpatient (IN) | payer MEDICARE, SELFPAY ==
[2024-01-10] VITALS (18 sets, daily range): BP systolic 121–186; BP diastolic 56–95; PULSE 64–84; RESP 13–18; TEMP 36.4–36.7; O2SAT 85–100; BMI 33.5; BMI 31.0
--- NOTE | 2024-01-10 10:34 | EKG12_ITS ---
Test Reason : REPEAT Blood Pressure : / mmHG Vent. Rate : 075 BPM Atrial Rate : 075 BPM P-R Int : 268 ms QRS Dur : 150 ms QT Int : 464 ms P-R-T Axes : 075 -66 091 degrees QTc Int : 518 ms Sinus rhythm with 1st degree A-V block Right bundle branch block Left anterior fascicular block Bifascicular block Cannot rule out septal CA Left ventricular hypertrophy Confirmed by Jeremiah Tabor ([id number]), news assignment editor CAR GARNETT ([id number]) on 01/11/2024 11:08:01 AM Referred By: Confirmed By:Jeremiah Tabor
--- NOTE | 2024-01-10 10:34 | RAD_ITS ---
INDICATION: chest pain EXAMINATION/TECHNIQUE: X-RAY - XR Chest 1 View COMPARISON: August 07, 2023 FINDINGS: LINES/DEVICES: None. LUNGS: There is a hazy opacity within the right lower lung. No pneumothorax. MEDIASTINUM AND CARDIOVASCULAR STRUCTURES: There is cardiomegaly. Central airways and mediastinal contour are unremarkable. BONES AND SOFT TISSUES: Unremarkable. RAD/Chest 1 View (Portable) IMPRESSION: Cardiomegaly. Indeterminant opacity within the right lower lung, may be secondary to compensation shadows however cannot exclude edema and/or an infectious process. Electronically Signed: Mel Ha MD at 11:13 EDT ,
[2024-01-10 10:42] LABS: Absolute Lymphocyte Count 1.33 X10^3/uL (0.83-4.51); Basophil# 0.05 X10^3/uL; Basophil% 0.6 % (0-1); Eosinophil# 0.19 X10^3/uL; Eosinophils% 2.3 % (0-5); Hematocrit 44.5 % (37-47); Hemoglobin 15.2 g/dL (12.0-15.0); Lymphocyte # 1.33 X10^3/ul (0.83-4.51); Lymphocyte % 16.2 % (19-41); Mean Corp Hgb Conc 34.2 g/dL (32-36); Mean Corpuscular Hgb 29.7 pg (27.0-32.0); Mean Corpuscular Volume 87.1 fL (81-99); Mean Platelet Vol. 9.8 fl (6.2-12.0); Monocyte# 0.57 X10^3/uL; Monocyte% 6.9 % (0-10); NRBC Flagged by Analyzer 0 % (0-5); Neutrophil # 6.01 X10^3/uL (2.7-7.7); Neutrophil % 73.3 % (47-70); Platelet Count 188 K/mm3 (150-450); RBC Distribution Width CV 13.7 % (11.6-14.6); RBC Distribution Width SD 43.7 fl (35.1-43.9); Red Blood Count 5.11 M/mm3 (4.2-5.4); White Blood Count 8.2 K/mm3 (4.4-11.0)
--- NOTE | 2024-01-10 10:45 | EKG12_ITS ---
Test Reason : Blood Pressure : / mmHG Vent. Rate : 069 BPM Atrial Rate : 069 BPM P-R Int : 248 ms QRS Dur : 150 ms QT Int : 476 ms P-R-T Axes : 055 -62 087 degrees QTc Int : 510 ms Sinus rhythm with 1st degree A-V block Right bundle branch block Left anterior fascicular block Bifascicular block Left ventricular hypertrophy Cannot rule out Septal infarct Abnormal ECG Confirmed by Jeremiah Tabor ([id number]), tape editor CAR GARNETT ([id number]) on 01/11/2024 11:07:24 AM Referred By: CHET Confirmed By:Jeremiah Tabor
--- NOTE | 2024-01-10 10:52 | CT_ITS ---
INDICATION: head trauma EXAMINATION: CT BRAIN - CT Head or Brain W/O Contrast Injection TECHNIQUE: Multiple axial images were obtained of the head without intravenous contrast. A radiation dose optimization technique was used for this scan. IV Contrast dosage and agent: None. RADIATION DOSAGE (If Supplied By Facility): CTDIvol = ( 44.99 ) mGy, DLP = ( 863.60 ) mGycm COMPARISON: November 28, 2021 FINDINGS: BRAIN PARENCHYMA: No intra- or extra-axial hemorrhage. There are patchy foci of low attenuation within the white matter of the cerebral hemispheres, a nonspecific finding most commonly reflecting small vessel ischemia. No evidence of acute infarct. No intracranial mass or mass effect. There is preservation of the ribeiro/white matter interface. Posterior fossa structures are unremarkable. CSF SPACES: Appropriate for age. No hydrocephalus. Basal cisterns are patent. CALVARIUM, SKULL BASE, PARANASAL SINUSES AND MASTOID AIR CELLS: Clear. No discrete lytic or blastic abnormalities. ORBITS: Both globes, extraocular muscles, optic nerves and retrobulbar fat appear unremarkable. ASPECTS Score for Acute Strokes: 10 CT/Brain/Head without Contrast IMPRESSION: Small vessel ischemia. Electronically Signed: Mel Ha MD at 11:31 EDT ,
--- NOTE | 2024-01-10 10:52 | CT_ITS ---
INDICATION: fall EXAMINATION: CT CERVICAL SPINE - CT Spine Cervical W/O Contrast Injection TECHNIQUE: Helically acquired images were obtained of the cervical spine. 2D reformatted images were reviewed. A radiation dose optimization technique was used for this scan. IV Contrast dosage and agent: None. RADIATION DOSAGE (If Supplied By Facility): CTDIvol = ( 22.18 ) mGy, DLP = ( 530.46 ) mGycm COMPARISON: No relevant prior comparison study available FINDINGS: VERTEBRAE: No fracture or traumatic subluxation. No discrete lytic or blastic abnormality. Normal alignment. There is multilevel endplate spondylosis and facet hypertrophy. Normal craniocervical junction and cervicothoracic junction. DISCS and SPINAL CANAL: There is multilevel degenerative disc disease. No critical stenosis. NECK SOFT TISSUES: No prevertebral soft tissue swelling. There is no cervical adenopathy. There are vascular calcifications. LUNG APICES: Clear. CT/Spine Cervical without Contras IMPRESSION: No evidence of acute cervical spinal fracture or spondylolisthesis. Multilevel degenerative changes. Atherosclerosis. Electronically Signed: Mel Ha MD at 11:48 EDT ,
--- NOTE | 2024-01-10 10:53 | EX.ED.DYSGE1 ---
HPI History of Present Illness Chief Complaint: Syncope Informant: patient and family Onset/Context/Timing Onset: Today Context: Sudden Onset Timing: Intermittent Current Severity: Mild Maximum Severity: Moderate Narrative Narrative: 88-year-old female known history of CAD with cardiac stent. On Plavix and aspirin. Also history of hypertension and right bundle branch block. No history of prior dysrhythmia. Patient was in the bathroom today. She felt lightheaded and had a syncopal episode which she thinks lasted about 10 minutes. She woke up on the floor. And her son came up to check on her and found her. She does complain of a mild headache and neck discomfort. He said when she fell she hit a small plastic trash can in the bathroom. No recent illness. No vomiting or diarrhea. No melena. Denies any recent chest pain. She had a prior episode like this thanksgiving a year and a half ago. She has never been specifically evaluated for. Prior similar symptoms: Yes Recent Illness/Hospitalization: No PFSH PFSH Medical History Atherosclerosis of coronary artery of nond[place] heart without angina pectoris Essential (primary) hypertension Hyperlipidemia Non-rheumatic aortic stenosis Nonrheumatic aortic valve insufficiency Obesity (BMI 30.0-34.9) Obstructive sleep apnea Right bundle branch block Stenosis of left carotid artery Home Medications cholecalciferol (vitamin D3) 25 mcg (1,000 unit) capsule 25 mcg PO DAILY 03/20/22 [History Last Taken 01/09/24] metoprolol succinate 25 mg tablet,extended release 24 hr 25 mg PO DAILY #90 tabs 02/04/23 [Rx Last Taken 01/09/24] aspirin 81 mg tablet,delayed release 81 mg PO DAILY 02/25/23 [History Last Taken 01/09/24] clopidogrel 75 mg tablet 75 mg PO QDAY #90 tabs 03/17/23 [Rx Last Taken 01/09/24] atorvastatin 40 mg tablet See Rx Instructions .Route .COMPLEX #90 tabs 04/15/23 [Rx Last Taken 01/09/24] escitalopram oxalate 10 mg tablet 10 mg PO DAILY 05/21/23 [History Last Taken 01/09/24] nitroglycerin 0.4 mg sublingual tablet (Nitrostat) 0.4 mg sublingual Q5-15M PRN chest pain #25 tabs 05/21/23 [Rx Last Taken Unknown] vit C 250 mg-vit E 90 mg-zinc 40 mg-copper 1 [id number] capsule (PreserVision AREDS-2) 1 tab PO ONCE 05/21/23 [History Last Taken 01/09/24] lisinopril 10 mg tablet 10 mg PO DAILY 08/25/23 [History Last Taken 01/09/24] Allergy/AdvReac Type Severity Reaction Status Date / Time amlodipine AdvReac Intermediate Other Verified 01/10/24 10:35 Penicillins AdvReac unknown Verified 01/10/24 10:35 Family History Mother Myocardial infarction age 73 from ID Father Heart disease CHF age 93 Surgical History History of cataract surgery History of coronary artery stent placement (12/23/17) History of hysterectomy Social History Smoking Status: Never smoker alcohol intake: never substance use type: does not use caffeine: Yes Type: coffee Number of servings: 1 what type of physical activity do you participate in: none seatbelt use: always do you feel safe at home: Yes ROS ROS ED ROS Narrative Denies recent illness. Review of Systems ROS Unobtainable: Denies due to encephalopathy Constitutional Constitutional ED: Denies chills or fever(s) Eyes Eyes: Denies blurry vision ENT ENT ED: Denies ear pain Cardiovascular Cardiovascular: Denies chest pain or palpitations Respiratory/Chest Respiratory/Chest: Denies cough or dyspnea Gastrointestinal Gastrointestinal: Denies abdominal pain Genitourinary Genitourinary ED: Denies dysuria or hematuria Musculoskeletal Musculoskeletal: Denies arthralgias or back pain Integumentary Denies abscess or Abrasions Neurologic Neurologic: Reports headache(s) Psychiatric Psychiatric: Denies anxiety or depression Endocrine Endocrinology: Denies cold intolerance Hematologic/Lymphatic Hematologic/Lymphatic: Reports none Allergic/Immunologic Allergic/Immunologic ED: Denies mouth swelling, tongue swelling or urticaria EXAM Physical Exam Narrative Exam Narrative: 88-year-old female sitting upright in bed. Son in the room. Vital signs stable afebrile. Pulse ox 95% on room air no signs hypoxia. HEENT exam pupils round reactive light. No signs of trauma to her face. Normal speech. No obvious trauma to her head. No hematoma or lacerations. Neck she describes discomfort in her neck. C-spine has diffuse tenderness. Trachea midline. Lungs clear to auscultation bilaterally. Heart regular rhythm rate about 70 no murmur. Chest wall and ribs are nontender. Back is nontender. Abdomen is soft and nontender. No peritoneal signs. Pelvic girdle intact. There is no shortening or rotation or tenderness either hip. She has normal machine tool rebuilder strength bilaterally. Normal dorsi plantarflexion. Normal range of motion both upper and lower extremities for her age. Neurologically she is awake and alert. Answering questions following commands. Has no focal motor deficits. Const Vital Signs: 01/10/24 10:31 01/10/24 10:34 01/10/24 11:10 Temperature 97.6 F L Temperature Source Temporal Pulse Rate 72 Pulse Rate [Lying] Pulse Rate [Sitting (for 1 minute prior to obtaining)] Pulse Rate [Standing (for 1 minute prior to obtaining)] Respiratory Rate 18 Respiratory Effort Normal Respiratory Pattern Normal Blood Pressure 152/86 H Blood Pressure [Lying] Blood Pressure [Sitting (for 1 minute prior to obtaining)] Blood Pressure [Standing (for 1 minute prior to obtaining)] Blood Pressure Mean 108 Blood Pressure Mean [Lying] Blood Pressure Mean [Sitting (for 1 minute prior to obtaining)] Blood Pressure Mean [Standing (for 1 minute prior to obtaining)] Pulse Ox 95 Oxygen Delivery Method Room Air Room Air 01/10/24 11:11 01/10/24 10:52 01/10/24 11:30 Temperature Temperature Source Pulse Rate 74 Pulse Rate [Lying] 74 Pulse Rate [Sitting (for 1 minute prior to obtaining)] 82 Pulse Rate [Standing (for 1 minute prior to obtaining)] 84 Respiratory Rate 14 Respiratory Effort Respiratory Pattern Blood Pressure 172/80 H Blood Pressure [Lying] 181/83 H Blood Pressure [Sitting (for 1 minute prior to obtaining)] 186/95 H Blood Pressure [Standing (for 1 minute prior to obtaining)] 166/79 H Blood Pressure Mean 110 Blood Pressure Mean [Lying] 115 Blood Pressure Mean [Sitting (for 1 minute prior to obtaining)] 125 Blood Pressure Mean [Standing (for 1 minute prior to obtaining)] 108 Pulse Ox 94 Oxygen Delivery Method Positive well nourished and well developed; Negative for cachectic, contractures or unkempt General Appearance ED: well developed and NAD; Negative for unkempt, cachectic, contractures, cyanotic, diaphoretic or pallor Nutritional Appearance: Negative for cachectic HEENT Reports moist mucous membranes; Denies dry mucous membranes Negative for trauma or tenderness Mouth ED: No dry mucous membranes Mouth: No dry mucous membranes Eyes PERRL and EOMs intact bilaterally General Eye ED: Negative for pale conjunctiva, scleral icterus or other Neck no lymphadenopathy, supple and no JVD General: tenderness Lymph Lymphatic: Negative for other Chest Wall inspection of chest normal and palpation of chest normal Resp normal respiratory effort and clear to auscultation bilaterally Effort and Inspection: Negative for retractions Auscultation: Negative for rales, rhonchi or wheezes Cardio regular rate, regular rhythm, S1 normal heart sound, S2 normal heart sound and no murmurs Palpation: Negative for palpable S3 or palpable S4 Rate: Negative for bradycardia or tachycardic Rhythm: Negative for abnormal rhythm GI normal to inspection, nondistended, normoactive bowel sounds, non-tender, non-distended and no masses Inspection: Negative for abdominal distention Auscultation: normoactive bowel sounds Palpation: soft; Negative for tender, guarding or rebound tenderness present Back/Spine no CVA tenderness General Back: Negative for CVA tenderness Cervical Spine: Negative for cervical spine tenderness Thoracic Spine / Upper Back: Negative for thoracic spinal tenderness or paraspinal muscle tenderness Lumbar Spine / Lower Back: Negative for lumbar spinal tenderness Extremity normal to inspection General Extremety ED: Negative for edema or tenderness General Extremity: Negative for edema Neuro oriented x3 and CN's II-XII intact bilaterally Sensorium / Orientation: alert; Negative for orientation impaired, lethargic or stuporous Motor Exam: strength 5/5 throughout; Negative for general weakness or strength abnormal Psych Appearance: Negative for unkempt Attitude: No agitated Mood & Affect: Negative for depressed, anxious or tearful Skin no rashes or lesions noted and no wounds General Skin Exam: Negative for jaundice or pallor Lesions: No lesion noted Rashes: No rashes noted Trauma: Negative for abrasion MDM MDM MDM Narrative Medical decision making narrative: 78-year-old female with known CAD with a stent and also right bundle branch block. Had a syncopal episode today at home. Lasted maybe 10 minutes. She also complaining of headache and neck pain from the fall. Screening labs to be done for cardiac workup. Currently on exam she does not have a dysrhythmia. Nor on her initial EKG. She also received a CAT scan of her head and C-spine due to the fall. Most likely patient be admitted for observation. Repeat exam 11:38 PM patient doing well. Unchanged. We discussed her test results. I have the hospitalist on page for admission for syncope. Orthostatic vital signs were negative. I spoke to the hospitalist and the patient will be admitted observation to PCU. History & Record Review Discussion w/independent historian: Patient and Family Additional record(s) reviewed:: Prior inpatient record, Prior outpatient record, Prior ED visit and Prior labs Lab Data Attestation: I reviewed the patient's lab results. Lab results narrative: CBC shows white count 8. H&H of 15 and 44. Platelets 188. Electrolytes show a gap of 7. BUN 26 creatinine 1. Glucose 118. Troponin is normal at 21. Labs: Laboratory Results - last 24 hr 01/10/24 10:35 WBC 8.2 RBC 5.11 Hgb 15.2 H Hct 44.5 MCV 87.1 MCH 29.7 MCHC 34.2 RDW Std Deviation 43.7 RDW Coeff of Roger 13.7 Plt Count 188 MPV 9.8 Immature Gran % (Auto) 0.700 Neut % (Auto) 73.3 H Lymph % (Auto) 16.2 L Gonzales % (Auto) 6.9 Eos % (Auto) 2.3 Baso % (Auto) 0.6 Absolute Neuts (auto) 6.0 Absolute Lymphs (auto) 1.33 Nucleated RBC % 0 Sodium 136 Potassium 4.3 Chloride 107 Carbon Dioxide 22.0 Anion Gap 7 BUN 26 H Creatinine 1.04 H Estim Creat Clear Calc 44.91 Est GFR (MDRD) Af Amer 65 Est GFR (MDRD) Non-Af 53 L BUN/Creatinine Ratio 25.0 H Glucose 118 H Calcium 9.0 Troponin I High Sens 21 Radiography Chest X-Ray - ED: 1 View, Read by ED Physician, Read by Radiologist, Heart, Lungs, Mediastinum, Bony Structures, No Acute Disease and Chronic Changes Diagnostic Testing: Clinical Impression(s) from Imaging Studies Chest X-Ray 01/10/24 10:34 IMPRESSION: Cardiomegaly. Indeterminant opacity within the right lower lung, may be secondary to compensation shadows however cannot exclude edema and/or an infectious process. Electronically Signed: Mel Ha MD at 11:13 EDT , Brain CT 01/10/24 10:52 IMPRESSION: Small vessel ischemia. Electronically Signed: Mel Ha MD at 11:31 EDT , Cervical Spine CT 01/10/24 10:52 IMPRESSION: No evidence of acute cervical spinal fracture or spondylolisthesis. Multilevel degenerative changes. Atherosclerosis. Electronically Signed: Mel Ha MD at 11:48 EDT , Chest x-ray, portable, single view interpreted both by myself and the radiologist shows cardiomegaly. Some mild density right lower lung that may all be chronic. There is no obvious pneumonia or pulmonary edema. Chronic changes. Rhythm Strip Rhythm Strip: Sinus Rhythm Rate: 69 Ectopy: None EKG Initial EKG: Attestation: I personally reviewed and interpreted this EKG as follows: Interpretation: Sinus Rhythm and No Acute Injury Pattern Comments: Normal sinus rhythm. Rate is 69. Right bundle branch block. Left anterior fascicular block. LVH. No acute signs of ID or ischemia. No obvious dysrhythmia. Discharge Plan Dx/Rx/DC Orders Clinical Impression: Syncope and collapse, Right bundle branch block, History of coronary artery disease Disposition Disposition: Acute Care [facility]
[2024-01-10 11:34] LABS: Anion Gap 7 (5-15); BUN 26 mg/dL (7-18); Chloride 107 mmol/L (98-107); Creatinine, Serum 1.04 mg/dL (0.55-1.02); EST Glomerular Filtration Rate 53 mL/min (>60); Est Glom Filt Rate - Afr Amer 65 mL/min (>60); Estimated Creatinine Clearance 44.91 ml/min; Glucose 118 mg/dL (74-106); Potassium 4.3 mmol/L (3.5-5.1); Sodium Level 136 mmol/L (136-145); Troponin-I HS 21 pg/mL (3.0-54.0)
--- NOTE | 2024-01-10 11:49 | HP.PCM.HOS_ITS ---
HPI - General General Date of Admission: 01/10/24 Date of Service: 01/10/24 Chief Complaint: syncope HPI Narrative DAVID ROMERO, is a 88 F with a PMH as outlined who presents via the ED on 01/10/2024 with a complaint of syncope. She was in the bathroom on the day of admission and felt lightheaded. She subsequently passed out and said this was for about 10 minutes, until her son came to the bathroom and found her. She admitted to neck pain and a mild headache. She said she had had similar syncope during Thanksgiving ~ 2 years ago. Vitals in [facility] ED were BP of 172/80, NE of 97.6F and NE of 74, as well as respiratory rate of 14. She was on room air. CBC showed hemoglobin of 15.2 with WBC of 8.2 and platelets of 188. Chemistry shows sodium of 136 with potassium of 4.3 and bicarb of 22. Creatinine was 1.04. Chest x-ray showed indeterminate opacity within the right lower lung which may be secondary to compensation shadows but however cannot exclude edema and/or an infectious process. CT of the brain showed small vessel ischemia and cervical spine CT showed no acute cervical spine fracture or spondylolisthesis. She is being admitted to be managed for syncope of unclear etiology. Of note orthostatics done in the ED was negative. [facility] Medical History Atherosclerosis of coronary artery of [place] heart without angina pectoris Essential (primary) hypertension Hyperlipidemia Non-rheumatic aortic stenosis Nonrheumatic aortic valve insufficiency Obesity (BMI 30.0-34.9) Obstructive sleep apnea Right bundle branch block Stenosis of left carotid artery Home Medications cholecalciferol (vitamin D3) 25 mcg (1,000 unit) capsule 25 mcg PO DAILY 03/20/22 [History Last Taken 01/09/24] metoprolol succinate 25 mg tablet,extended release 24 hr 25 mg PO DAILY #90 tabs 02/04/23 [Rx Last Taken 01/09/24] aspirin 81 mg tablet,delayed release 81 mg PO DAILY 02/25/23 [History Last Taken 01/09/24] clopidogrel 75 mg tablet 75 mg PO QDAY #90 tabs 03/17/23 [Rx Last Taken 01/08] atorvastatin 40 mg tablet See Rx Instructions .Route .COMPLEX #90 tabs 04/15/23 [Rx Last Taken 01/09/24] escitalopram oxalate 10 mg tablet 10 mg PO DAILY 05/21/23 [History Last Taken 01/09/24] nitroglycerin 0.4 mg sublingual tablet (Nitrostat) 0.4 mg sublingual Q5-15M PRN chest pain #25 tabs 05/21/23 [Rx Last Taken Unknown] vit C 250 mg-vit E 90 mg-zinc 40 mg-copper 1 [id number] capsule (PreserVision AREDS-2) 1 tab PO ONCE 05/21/23 [History Last Taken 01/09/24] lisinopril 10 mg tablet 10 mg PO DAILY 08/25/23 [History Last Taken 01/09/24] Allergy/AdvReac Type Severity Reaction Status Date / Time amlodipine AdvReac Intermediate Other Verified 01/10/24 10:35 Penicillins AdvReac unknown Verified 01/10/24 10:35 Family History Mother Myocardial infarction age 73 from [place] Father Heart disease CHF age 93 Surgical History History of cataract surgery History of coronary artery stent placement (12/23/17) History of hysterectomy Social History Smoking Status: Never smoker alcohol intake: never substance use type: does not use caffeine: Yes Type: coffee Number of servings: 1 what type of physical activity do you participate in: none seatbelt use: always do you feel safe at home: Yes ROS Review of Systems ROS Unobtainable: Denies due to encephalopathy Constitutional Constitutional: Reports fatigue, malaise and weakness; Denies anorexia, chills or fever(s) Eyes Eyes: Denies change in vision ENT HEENT: Denies dysphagia or headache(s) Cardiovascular Cardiovascular: Reports syncope; Denies chest pain, dyspnea on exertion, edema, lightheadedness, orthopnea, palpitations, paroxysmal nocturnal dyspnea or rapid heart rate Respiratory/Chest Respiratory/Chest: Denies cough, dyspnea, shortness of breath at rest or shortness of breath with exertion Gastrointestinal Gastrointestinal: Denies abdominal pain, coffee ground emesis, nausea or vomiting Genitourinary Genitourinary: Denies burning urination or difficulty urinating Neurologic Neurologic: Reports syncope; Denies confusion, disequilibrium, dizziness, focal weakness, headache(s), numbness or seizures Psychiatric Psychiatric: Denies anxiety or depression Vital Signs Vital Signs Vital Signs: 01/10/24 10:31 01/10/24 10:34 01/10/24 11:10 Temperature 97.6 F L Temperature Source Temporal Pulse Rate 72 Pulse Rate [Lying] Pulse Rate [Sitting (for 1 minute prior to obtaining)] Pulse Rate [Standing (for 1 minute prior to obtaining)] Respiratory Rate 18 Respiratory Effort Normal Respiratory Pattern Normal Blood Pressure 152/86 H Blood Pressure [Lying] Blood Pressure [Sitting (for 1 minute prior to obtaining)] Blood Pressure [Standing (for 1 minute prior to obtaining)] Blood Pressure Mean 108 Blood Pressure Mean [Lying] Blood Pressure Mean [Sitting (for 1 minute prior to obtaining)] Blood Pressure Mean [Standing (for 1 minute prior to obtaining)] Pulse Ox 95 Oxygen Delivery Method Room Air Room Air 01/10/24 11:11 01/10/24 10:52 01/10/24 11:30 Temperature Temperature Source Pulse Rate 74 Pulse Rate [Lying] 74 Pulse Rate [Sitting (for 1 minute prior to obtaining)] 82 Pulse Rate [Standing (for 1 minute prior to obtaining)] 84 Respiratory Rate 14 Respiratory Effort Respiratory Pattern Blood Pressure 172/80 H Blood Pressure [Lying] 181/83 H Blood Pressure [Sitting (for 1 minute prior to obtaining)] 186/95 H Blood Pressure [Standing (for 1 minute prior to obtaining)] 166/79 H Blood Pressure Mean 110 Blood Pressure Mean [Lying] 115 Blood Pressure Mean [Sitting (for 1 minute prior to obtaining)] 125 Blood Pressure Mean [Standing (for 1 minute prior to obtaining)] 108 Pulse Ox 94 Oxygen Delivery Method Weight Weight: 207 lb 10.807 oz Body Mass Index (BMI) 33.5 Physical Exam Const alert, oriented x3, no apparent distress and average body habitus General Appearance: cooperative HEENT normocephalic, head/scalp atraumatic, hearing grossly normal bilaterally and moist oral mucous membranes Mouth: oral and palatal mucosa normal Eyes PERRL, EOMs intact bilaterally and conjunctivae normal Neck no lymphadenopathy and supple Resp normal respiratory effort, no retractions, no use of accessory muscles and clear to auscultation bilaterally Cardio regular rate, regular rhythm, S1 normal heart sound and S2 normal heart sound Cardio Narrative: grade 3 systolic murmur, loudest in the aortic region GI normal to inspection, nondistended, normoactive bowel sounds, soft to palpation, non-tender and non-distended Extremity normal to inspection, full ROM and no clubbing, cyanosis or edema Neuro oriented x3, CN's II-XII intact bilaterally, moves all extremities and no focal motor deficits Sensorium / Orientation: awake and alert Motor Exam: strength 5/5 throughout Psych affect normal Results Lab / Micro Data 01/10/24 10:35 01/10/24 10:35 Labs: Laboratory Results - last 24 hr 01/10/24 10:35: WBC 8.2, RBC 5.11, Hgb 15.2 H, Hct 44.5, MCV 87.1, MCH 29.7, MCHC 34.2, RDW Std Deviation 43.7, RDW Coeff of Roger 13.7, Plt Count 188, MPV 9.8, Immature Gran % (Auto) 0.700, Neut % (Auto) 73.3 H, Lymph % (Auto) 16.2 L, [place] % (Auto) 6.9, Eos % (Auto) 2.3, Baso % (Auto) 0.6, Absolute Neuts (auto) 6.0, Absolute Lymphs (auto) 1.33, Nucleated RBC % 0, Sodium 136, Potassium 4.3, Chloride 107, Carbon Dioxide 22.0, Anion Gap 7, BUN 26 H, Creatinine 1.04 H, Estim Creat Clear Calc 44.91, Est GFR (MDRD) Af Amer 65, Est GFR (MDRD) Non-Af 53 L, BUN/Creatinine Ratio 25.0 H, Glucose 118 H, Calcium 9.0, Troponin I High Sens 21 Rhythm Strip Rhythm Strip: Sinus Rhythm Rate: 69 Ectopy: None Imaging Radiology Impression Chest X-Ray 01/10/24 10:34 IMPRESSION: Cardiomegaly. Indeterminant opacity within the right lower lung, may be secondary to compensation shadows however cannot exclude edema and/or an infectious process. Electronically Signed: Mel Ha MD at 11:13 EDT , Brain CT 01/10/24 10:52 IMPRESSION: Small vessel ischemia. Electronically Signed: Mel Ha MD at 11:31 EDT , Assessment & Plan Assessment/Plan (1) Syncope and collapse: PLAN: Plan #Syncope * patient passed out at home and was out for about 10 mins * had no associated tongue biting or any post syncopal bladder or fecal incontinence. * admit to PCU * CT brain showed no acute intracranial pathology. CT cervical spine showed no acute cervical spinal fracture or spondylolisthesis * check orthostatics. * HR on the telemetry went down to 33. * bradycardia likely the cause of her syncope * consult cardiology * admit to PCU stepdown * order 2D echo * check TSH * IV atropine as needed * fall precautions * # CAD s/p stents: on aspirin and plavix as well as statin #Hypertension; on lisinopril and metoprolol #Depression: on escitalopram DVT prophylaxis: lovenox Code status: DNR CCA with intubation * Patient counseled extensively about different types of CODE STATUS including full code, DNR CCA and DNR CCA. Patient elects to be DNR CCA with intubation. She says her in March 2023 and at that time, he had CPR done which was not successful. She therefore does not want to go through the same experience. His son was by her bedside and in agreement with his mother 's wishes. * Total [id number] time 17 minutes. Charges/Coding Visit Charges Inpatient E&M: 27504 Init Hosp L3 Procedures Hospitalists Procedures: 30438 Advncd Care Plan 30 Min
[2024-01-10] MEDS: Acetaminophen 325 MG Tablet 650 MG PO ×2 (13:38→20:36)
[2024-01-10] MEDS: Clopidogrel Bisulfate 75 MG Tablet PO (13:38)
[2024-01-10 14:00] LABS: Troponin-I HS 27 pg/mL (3.0-54.0)
--- NOTE | 2024-01-10 16:33 | NURSING ---
Telemetry alarming asystole. Noted 3.8 second pause. Into room with Shelby RN to check on patient, patient observed laying in bed awake. Denies any chest pain or discomfort, but complains of headache and being lightheaded. EKG obtained. Patient now sinus rhythm and hr of 68. Five minutes later Dr Tejada into room to round on patient, showed telemetry strip and EKG, alerted him of symptoms. Dr Tejada requesting patient be transferred to ICU for temporary pacing. Dr Khan updated on above, sent rhythm strip; will transfer to ICU. Primary RN Saman made aware.
--- NOTE | 2024-01-10 16:35 | PCM.CONS.C ---
Assessment & Plan Assessment/Plan (1) Sick sinus syndrome: PLAN: Patient with first-degree AV block and right bundle branch block on ECG. Bifascicular block. Also noted to have 5-second pause noted on telemetry monitoring. Recommend permanent pacemaker. Discussed with patient. She is not too sure about it but is leaning towards it. Monitor in the ICU. Temporary percutaneous pacing pads. Agree with stopping beta-blockers. (2) Syncope and collapse: PLAN: See #1 above. (3) Essential (primary) hypertension: PLAN: Continue lisinopril. (4) Aortic valve stenosis: PLAN: Repeat echocardiogram. (5) Concentric left ventricular hypertrophy: PLAN: Severe LV concentric hypertrophy reported on echocardiogram. Will repeat echo. (6) Stenosis of left carotid artery: PLAN: Continue aspirin and Plavix. Repeat carotid Doppler. HPI Consult Data Date of Consult: 01/10/24 HPI Narrative Reason for Consultation: Syncope HPI Narrative: 88-year-old female with past medical history significant for moderate aortic valve stenosis, hypertension and severe left ventricular concentric hypertrophy. He presented to the emergency room after experiencing a syncopal episode at home earlier today. According to the patient, she had just taken a bath and was standing up when she felt dizzy. The next moment she found herself on the floor. She did hit her head on the floor. In the emergency room, patient has had an episode where and her heart rate dropped into the 30s. She did feel lightheaded with that. She has had 5-second pause on telemetry this afternoon. Again she was symptomatic with that feeling lightheaded. Patient denies any chest pains. No shortness of breath. Patient also has history of carotid artery disease with near complete occlusion of the left internal carotid artery reported on carotid duplex from November 2021. [facility] Medical History Atherosclerosis of coronary artery of [place] heart without angina pectoris Essential (primary) hypertension Hyperlipidemia Non-rheumatic aortic stenosis Nonrheumatic aortic valve insufficiency Obesity (BMI 30.0-34.9) Obstructive sleep apnea Right bundle branch block Stenosis of left carotid artery Home Medications cholecalciferol (vitamin D3) 25 mcg (1,000 unit) capsule 25 mcg PO DAILY 03/20/22 [History Last Taken 01/09/24] metoprolol succinate 25 mg tablet,extended release 24 hr 25 mg PO DAILY #90 tabs 02/04/23 [Rx Last Taken 01/09/24] aspirin 81 mg tablet,delayed release 81 mg PO DAILY 02/25/23 [History Last Taken 01/09/24] clopidogrel 75 mg tablet 75 mg PO QDAY #90 tabs 03/17/23 [Rx Last Taken 01/09/24] atorvastatin 40 mg tablet See Rx Instructions .Route .COMPLEX #90 tabs 04/15/23 [Rx Last Taken 01/09/24] escitalopram oxalate 10 mg tablet 10 mg PO DAILY 05/21/23 [History Last Taken 01/09/24] nitroglycerin 0.4 mg sublingual tablet (Nitrostat) 0.4 mg sublingual Q5-15M PRN chest pain #25 tabs 05/21/23 [Rx Last Taken Unknown] vit C 250 mg-vit E 90 mg-zinc 40 mg-copper 1 [id number] capsule (PreserVision AREDS-2) 1 tab PO ONCE 05/21/23 [History Last Taken 01/09/24] lisinopril 10 mg tablet 10 mg PO DAILY 08/25/23 [History Last Taken 01/09/24] Allergy/AdvReac Type Severity Reaction Status Date / Time amlodipine AdvReac Intermediate Other Verified 01/10/24 10:35 Penicillins AdvReac unknown Verified 01/10/24 10:35 Family History Mother Myocardial infarction age 73 from [place] Father Heart disease CHF age 93 Surgical History History of cataract surgery History of coronary artery stent placement (12/23/17) History of hysterectomy Social History Smoking Status: Never smoker alcohol intake: never substance use type: does not use caffeine: Yes Type: coffee Number of servings: 1 what type of physical activity do you participate in: none seatbelt use: always do you feel safe at home: Yes Physical Exam Narrative Comfortable. Lying flat in the bed. No carotid bruit is audible. Heart sounds 1 and 2 are noted. 3/6 systolic murmur at apex and base. Chest examination reveals decreased breath sounds at bilateral bases. Alert oriented x 3. No ankle edema. Risk Stratification Risk Stratification Applicable: No Objective Data Vital Signs: Vital Signs Temp Pulse Resp BP Pulse Ox O2 Del Method O2 Flow Rate 98.0 F 69 18 144/69 H 100 Nasal Cannula 2 01/10/24 16:05 01/10/24 16:05 01/10/24 16:05 01/10/24 16:05 01/10/24 16:05 01/10/24 16:05 01/10/24 16:05 Oxygen Flow Rate (L/min) 2 Oxygen Delivery Method Nasal Cannula Weight: 197 lb 15.602 oz Body Mass Index (BMI) 31.0 Intake & Output: Intake and Output for Last 24 Hours 01/08/24 01/09/24 01/10/24 23:59 23:59 23:59 Intake Total 200 / 200 Balance 200 / 200 Lab / Micro Data 01/10/24 10:35 01/10/24 10:35 Labs: Laboratory Results - last 24 hr 01/10/24 10:35: WBC 8.2, RBC 5.11, Hgb 15.2 H, Hct 44.5, MCV 87.1, MCH 29.7, MCHC 34.2, RDW Std Deviation 43.7, RDW Coeff of Roger 13.7, Plt Count 188, MPV 9.8, Immature Gran % (Auto) 0.700, Neut % (Auto) 73.3 H, Lymph % (Auto) 16.2 L, [place] % (Auto) 6.9, Eos % (Auto) 2.3, Baso % (Auto) 0.6, Absolute Neuts (auto) 6.0, Absolute Lymphs (auto) 1.33, Nucleated RBC % 0, Sodium 136, Potassium 4.3, Chloride 107, Carbon Dioxide 22.0, Anion Gap 7, BUN 26 H, Creatinine 1.04 H, Estim Creat Clear Calc 44.91, Est GFR (MDRD) Af Amer 65, Est GFR (MDRD) Non-Af 53 L, BUN/Creatinine Ratio 25.0 H, Glucose 118 H, Calcium 9.0, Troponin I High Sens 21 01/10/24 13:35: Troponin I High Sens 27 Rhythm Strip Rhythm Strip: Sinus Rhythm Rate: 69 Ectopy: None Cardiology Labs/Tests 01/10/24 10:35: WBC 8.2, RBC 5.11, Hgb 15.2 H, Hct 44.5, MCV 87.1, MCH 29.7, MCHC 34.2, Plt Count 188, MPV 9.8, Immature Gran % (Auto) 0.700, Neut % (Auto) 73.3 H, Lymph % (Auto) 16.2 L, [place] % (Auto) 6.9, Eos % (Auto) 2.3, Baso % (Auto) 0.6, Absolute Neuts (auto) 6.0, Nucleated RBC % 0, Sodium 136, Potassium 4.3, Chloride 107, Carbon Dioxide 22.0, Anion Gap 7, BUN 26 H, Creatinine 1.04 H, Est GFR (MDRD) Af Amer 65, Est GFR (MDRD) Non-Af 53 L, BUN/Creatinine Ratio 25.0 H, Glucose 118 H, Calcium 9.0 Rhythm: Sinus rhythm with first-degree AV block. 5-second pause noted. EKG: ECG shows sinus rhythm with first-degree AV block and right bundle branch block. Bifascicular block. ECHO: Stress Test: Cardiac Cath: PCI: CT Surgery: Holter monitor: EPS: PPM: CXR: Chest CT Scan: Radiography Diagnostic Testing: Radiology Impression Chest X-Ray 01/10/24 10:34 IMPRESSION: Cardiomegaly. Indeterminant opacity within the right lower lung, may be secondary to compensation shadows however cannot exclude edema and/or an infectious process. Electronically Signed: Mel Ha MD at 11:13 EDT , Brain CT 01/10/24 10:52 IMPRESSION: Small vessel ischemia. Electronically Signed: Mel Ha MD at 11:31 EDT , Cervical Spine CT 01/10/24 10:52 IMPRESSION: No evidence of acute cervical spinal fracture or spondylolisthesis. Multilevel degenerative changes. Atherosclerosis. Electronically Signed: Mel Ha MD at 11:48 EDT ,
--- NOTE | 2024-01-10 17:05 | NURSING ---
Report called to nurse Hearn for pt to be tx to ICU bed 3.
[2024-01-10 17:10] LABS: Troponin-I HS 35 pg/mL (3.0-54.0)
--- NOTE | 2024-01-10 18:28 | CDU_ITS ---
Reason For Study: Syncope Rt. Velocities/BP Lt. Velocities/BP Prox CCA 70.2/8.8 cm/sec. Prox CCA 43.9/7.2 cm/sec. Mid CCA 71.1/11.6 cm/sec. Mid CCA 42.1/8.1 cm/sec. Dist CCA 50.4/12.6 cm/sec. Dist CCA 39.5/7.2 cm/sec. Prox ICA 60.8/17.9 cm/sec. Prox ICA 200.4/29.3 cm/sec. Mid ICA 70.7/19 cm/sec. Mid ICA 101/9.7 cm/sec. Dist ICA 63/16.8 cm/sec. Dist ICA 90/13.3 cm/sec. Rt. ICA/CCA = 0.99. Lt. ICA/CCA = 4.76. Prox ECA 93.8/4.7 cm/sec. Prox ECA 123.9/17.9 cm/sec. Rt. Vert. 52/11.3 cm/sec. Lt. Vert. 409./11.6 cm/sec. Right Extracranial There is homogeneous, smooth atherosclerotic plaque noted in the right common carotid artery. There is heterogeneous, irregular atherosclerotic plaque noted in the right internal carotid artery. There is heterogeneous, irregular atherosclerotic plaque noted in the right external carotid artery. Antegrade flow is noted in the right vertebral artery. Left Extracranial There is homogeneous, smooth atherosclerotic plaque noted in the left common carotid artery. There is heterogeneous, irregular atherosclerotic plaque noted in the left internal carotid artery. Trickle flow ntoed in the left ICA prox. There is heterogeneous, irregular atherosclerotic plaque noted in the left external carotid artery. Antegrade flow is noted in the left vertebral artery. Procedure Carotid Duplex [id number]. This is a Carotid Duplex examination using B-mode, color flow and specral Doppler. Preliminary to Madeleine PINTO. Exam performed in department. VL/Carotid Duplex Ultrasound Interpretation Summary Mild (<50%) stenosis right extracranial internal carotid. Moderate (50-69%) stenosis left extracranial internal carotid. Patent and antegrade vertebrals bilaterally. Ordering Physician: Awais Tejada Referring Physician: Giovana Lopez Performed By: Lilia Brown RVT
[2024-01-10] MEDS: Atorvastatin Calcium 40 MG Tablet PO (20:36)
[2024-01-11] VITALS (24 sets, daily range): BP systolic 100–179; BP diastolic 37–82; PULSE 56–70; RESP 13–19; TEMP 36.1–36.5; O2SAT 92–100; BMI 31.3
[2024-01-11] MEDS: Acetaminophen 325 MG Tablet 650 MG PO (04:11)
[2024-01-11] MEDS: Ondansetron 4 MG/2 ML Vial IV (04:16)
[2024-01-11] MEDS: 0.9% Saline Lock 10 ML Syringe IV ×2 (04:17→23:11)
[2024-01-11] MEDS: 0.9% Normal Saline (1000mL) 1,000 ML 15 ML IV (04:58)
[2024-01-11 05:13] LABS: Bacteria 0 SEEN /hpf (None Seen); Mucous, Urine 0 SEEN /hpf (<or=2+); Red Blood Cells-Urine 0 SEEN /hpf (0-5); Squamous Epithelial Cells - UA 0 SEEN /hpf (5-10); White Blood Cells 0 SEEN /hpf (0-5)
[2024-01-11 05:13] LABS: Absolute Lymphocyte Count 1.53 X10^3/uL (0.83-4.51); Basophil# 0.03 X10^3/uL; Basophil% 0.4 % (0-1); Eosinophil# 0.12 X10^3/uL; Eosinophils% 1.6 % (0-5); Hematocrit 43.5 % (37-47); Hemoglobin 14.3 g/dL (12.0-15.0); Lymphocyte # 1.53 X10^3/ul (0.83-4.51); Lymphocyte % 20.2 % (19-41); Mean Corp Hgb Conc 32.9 g/dL (32-36); Mean Corpuscular Hgb 29.4 pg (27.0-32.0); Mean Corpuscular Volume 89.3 fL (81-99); Mean Platelet Vol. 10.2 fl (6.2-12.0); Monocyte# 0.83 X10^3/uL; NRBC Flagged by Analyzer 0 % (0-5); Neutrophil # 5.04 X10^3/uL (2.7-7.7); Neutrophil % 66.5 % (47-70); Platelet Count 196 K/mm3 (150-450); RBC Distribution Width CV 13.8 % (11.6-14.6); RBC Distribution Width SD 44.8 fl (35.1-43.9); Red Blood Count 4.87 M/mm3 (4.2-5.4); White Blood Count 7.6 K/mm3 (4.4-11.0)
[2024-01-11 05:14] LABS: Color, Urine Yellow (Yellow); Glucose, Dipstick Normal (Normal); Ketone-Dipstick Negative (Negative); Leukocyte Esterase-Dipstick Negative /ul (Negative); Nitrite-Dipstick Negative (Negative); Occult Blood-Urine Negative /ul (Negative); Protein-Dipstick Negative (Negative); Urine Bilirubin Dipstick Negative (Negative); Urine Clarity Clear (Clear); Urine Urobilinogen Normal (Normal)
[2024-01-11 05:21] LABS: Anion Gap 5 (5-15); BUN 19 mg/dL (7-18); BUN/Creat Ratio 20.6 RATIO (10-20); Calcium,Total 8.8 mg/dL (8.5-10.1); Chloride 104 mmol/L (98-107); Creatinine, Serum 0.92 mg/dL (0.55-1.02); EST Glomerular Filtration Rate 61 mL/min (>60); Est Glom Filt Rate - Afr Amer 74 mL/min (>60); Glucose 82 mg/dL (74-106); Potassium 3.7 mmol/L (3.5-5.1); Sodium Level 137 mmol/L (136-145)
[2024-01-11 05:27] LABS: International Normalized Ratio 1.1; Partial Thromboplast Time 32.8 Seconds (24.1-36.2); Prothrombin Time (Protime)PT. 14.5 SECONDS (11.7-14.9)
--- NOTE | 2024-01-11 09:23 | CASEMGMT ---
RN NEHEMIAS Assessment Face to Face with patient for initial transition planning/care coordination assessment. RN CM introduced self and role at [facility], pt voices understanding. Pt is A&Ox4 and is resting comfortably in bed and is calm. Care providers, pharmacy, and demographics verified. Admitting dx: Syncope LACE Strata: 1 PCP: Giovana Lopez Specialists: Iman Preferred Pharmacy: [facility] Insurance: [facility] A/B Prescription Benefit: Pt denies. Pt educated about Good Rx LNOK: Zachary Duenas (Son), Elisa Duenas (Daughter - Lives in [place]) Living Arrangements: Pt lives with her son in a 2 story home with a BM with handrails throughout with 1 step to enter the home with a handrail. Pt states that she does not have a bathroom on the main level. This RN CM educated the pt that we could get a BSC set up for the pt at home. Pt denies needing this and states my son can make some rearrangements for me and I won't need that. ADLs/IADLs: Pt states that she is normally ind and that her son can help her at home if needed Transportation: Son DME: BP Cuff. Cane. Shower GB. Raised Toilet seat. HHC/SNF: Denies history Pt?s goal: Home Plan: TBD. Pt 6-Click is currently 12. Therapy evals pending. Pt is scheduled for a Pacemaker today. Pt states that she wants to go home at time of DC and is refusing SNF at this time. Pt states that her daughter is coming to her home on the 11 to live with the pt and the pt son for one week. Pt states that she feels safe going home with the help of her children once medically ready. Pt states that she is unsure at this time if she would like HHC or not. CM to follow therapy and pt progression for safe DC home from [facility]. Judy Andrew RN, CM
--- NOTE | 2024-01-11 10:31 | PCM.PN.HOSP ---
Reason for Visit Reason for Visit: Diagnoses Essential (primary) hypertension (01/10/24) Nonrheumatic aortic (valve) stenosis (01/10/24) Sick sinus syndrome (01/10/24) Cardiomegaly (01/10/24) Occlusion and stenosis of left carotid artery (01/10/24) Syncope and collapse (01/10/24) Subjective Subjective Patient was seen and examined today, she is due to have a pacemaker placed today, patient voices no complaints at present time Objective Data Objective Data Vital Signs: Vital Signs Temp Pulse Resp BP Pulse Ox O2 Del Method O2 Flow Rate 97.7 F L 70 18 168/78 H 94 Room Air 2 01/11/24 08:00 01/11/24 10:00 01/11/24 10:00 01/11/24 10:00 01/11/24 10:00 01/11/24 10:00 01/10/24 19:00 Oxygen Flow Rate (L/min) 2 Oxygen Delivery Method Room Air Weight: 90.5 kg Body Mass Index (BMI) 31.3 Intake & Output: Intake and Output for Last 24 Hours 01/09/24 01/10/24 01/11/24 23:59 23:59 23:59 Intake Total 440 / 440 240 / 240 Output Total 350 / 350 350 / 350 Balance 90 / 90 -110 / -110 Lab / Micro Data 01/11/24 04:55 01/11/24 04:55 Labs: Laboratory Results - last 24 hr 01/10/24 10:35: WBC 8.2, RBC 5.11, Hgb 15.2 H, Hct 44.5, MCV 87.1, MCH 29.7, MCHC 34.2, RDW Std Deviation 43.7, RDW Coeff of Roger 13.7, Plt Count 188, MPV 9.8, Immature Gran % (Auto) 0.700, Neut % (Auto) 73.3 H, Lymph % (Auto) 16.2 L, Story % (Auto) 6.9, Eos % (Auto) 2.3, Baso % (Auto) 0.6, Absolute Neuts (auto) 6.0, Absolute Lymphs (auto) 1.33, Nucleated RBC % 0, Sodium 136, Potassium 4.3, Chloride 107, Carbon Dioxide 22.0, Anion Gap 7, BUN 26 H, Creatinine 1.04 H, Estim Creat Clear Calc 44.91, Est GFR (MDRD) Af Amer 65, Est GFR (MDRD) Non-Af 53 L, BUN/Creatinine Ratio 25.0 H, Glucose 118 H, Calcium 9.0, Troponin I High Sens 21 01/10/24 13:35: Troponin I High Sens 27 01/10/24 16:35: Troponin I High Sens 35 01/11/24 04:55: WBC 7.6, RBC 4.87, Hgb 14.3, Hct 43.5, MCV 89.3, MCH 29.4, MCHC 32.9, RDW Std Deviation 44.8 H, RDW Coeff of Roger 13.8, Plt Count 196, MPV 10.2, Immature Gran % (Auto) 0.300, Neut % (Auto) 66.5, Lymph % (Auto) 20.2, Story % (Auto) 11.0 H, Eos % (Auto) 1.6, Baso % (Auto) 0.4, Absolute Neuts (auto) 5.0, Absolute Lymphs (auto) 1.53, Nucleated RBC % 0, PT 14.5, INR 1.1, APTT 32.8, Sodium 137, Potassium 3.7, Chloride 104, Carbon Dioxide 28.0, Anion Gap 5, BUN 19 H, Creatinine 0.92, Estim Creat Clear Calc 50.50, Est GFR (MDRD) Af Amer 74, Est GFR (MDRD) Non-Af 61, BUN/Creatinine Ratio 20.6 H, Glucose 82, Calcium 8.8 01/11/24 05:00: Urine Color Yellow, Urine Clarity Clear, Urine pH 7.0, Ur Specific Hammond 1.010, Urine Protein Negative, Urine Glucose (UA) Normal, Urine Ketones Negative, Urine Occult Blood Negative, Urine Nitrite Negative, Urine Bilirubin Negative, Urine Urobilinogen Normal, Ur Leukocyte Esterase Negative, Urine RBC 0 SEEN, Urine WBC 0 SEEN, Ur Squamous Epith Cells 0 SEEN, Urine Bacteria 0 SEEN, Urine Mucus 0 SEEN Radiography Diagnostic Testing: Radiology Impression Chest X-Ray 01/10/24 10:34 IMPRESSION: Cardiomegaly. Indeterminant opacity within the right lower lung, may be secondary to compensation shadows however cannot exclude edema and/or an infectious process. Electronically Signed: Mel Ha MD at 11:13 EDT , Brain CT 01/10/24 10:52 IMPRESSION: Small vessel ischemia. Electronically Signed: Mel Ha MD at 11:31 EDT , Cervical Spine CT 01/10/24 10:52 IMPRESSION: No evidence of acute cervical spinal fracture or spondylolisthesis. Multilevel degenerative changes. Atherosclerosis. Electronically Signed: Mel Ha MD at 11:48 EDT , Rhythm Strip Rhythm Strip: Sinus Rhythm Rate: 69 Ectopy: None Physical Exam Const alert, oriented x3, no apparent distress, average body habitus and healthy appearing General Appearance: cooperative, well kempt and well developed Orientation / Consciousness: awake, oriented to person, oriented to place and oriented to time HEENT normocephalic, head/scalp atraumatic and moist oral mucous membranes Eyes PERRL, EOMs intact bilaterally and conjunctivae normal Neck supple, no JVD, thyroid normal and no carotid bruits General: trachea midline Resp normal respiratory effort, no retractions, no use of accessory muscles and clear to auscultation bilaterally Auscultation: Negative for rales, rhonchi or wheezes Cardio regular rate, regular rhythm, S1 normal heart sound, S2 normal heart sound, no murmurs, no rub and no gallops GI normal to inspection, nondistended, normoactive bowel sounds, soft to palpation, non-tender and non-distended Extremity no clubbing, cyanosis or edema Skin no rashes or lesions noted General Skin Exam: no breakdown Neuro oriented x3, CN's II-XII intact bilaterally, moves all extremities, no focal motor deficits and no sensory deficits noted Sensorium / Orientation: awake and alert Speech: speech normal Psych affect normal Assessment & Plan Assessment/Plan (1) Sick sinus syndrome: PLAN: Plan 1. Sick sinus syndrome-again patient will have a pacemaker inserted today #2 syncope-secondary to #1, again patient will need pacemaker placement #3 essential hypertension-patient is on lisinopril #4 coronary artery disease-this is stable at this time Total clinical time spent by myself addressing the patient's medical issues, reviewing all of her data, and collaborating with patient's care team: 35 minutes Charges/Coding Visit Charges Inpatient E&M: 80547 Subs Hosp L2
[2024-01-11] MEDS: Clindamycin 900 MG/50 ML BAG 75 MG IV (10:39)
--- NOTE | 2024-01-11 11:55 | CL.IE_ITS ---
Patient: DAVID ROMERO Study Date: 01/11/2024 Performing: Alejandro Valerio MD : 1935 Age: 88 Gender: female PROCEDURES PERFORMED [id number])INITIAL PACER INSERT+DUAL LEADS INDICATIONS Sinoatrial node dysfunction/Sick sinus syndrome PROCEDURE DETAILS The patient was brought to the Catheterization Lab in the postabsorptive nonsedated state. Informed consent was obtained prior to the procedure. Local anesthetic was given subcutaneously to the left upper chest area with Lidocaine 2%. Incision was made to the left upper chest. Access was achieved and a guidewire was advanced into the left subclavian vein. A peel-away sheath was inserted into the left subclavian vein. PPM ventricular lead was inserted / positioned to right ventricular apex. PPM ventricular lead testing performed. PPM ventricular lead testing performed. PPM atrial lead was inserted / positioned to the right atrial appendage. PPM atrial lead testing performed. The Atrial lead sutured in place with 2-0 Silk. The Ventricular PM lead sutured in place with 2-0 Silk. Device pocket was irrigated with antibiotic. PPM generator was attached to the lead(s) and inserted into the pocket. Subcutaneous closure was completed with 3-0 Vicryl. Skin closure was completed with 4-0 Vicryl. The patient tolerated the procedure well. Estimated Blood Loss: 10 ml's IMPLANTED / EX-PLANTED DEVICES IMPLANTED DEVICE(S): PPM Ventricular lead - Lipstick Molder: SolFocus, Model # Ingevity 7841 , Serial # [id number] PPM Atrial lead - Lipstick Molder: SolFocus, Model # Ingevity [id number] , Serial # [id number] PPM Generator - Lipstick Molder: SolFocus, Model # [employer] MRI DR L111 , Serial # [id number] DEVICE PARAMETERS ATRIAL LEAD PARAMETERS: P wave- 1.6 (mV) Current- 1.4 (mA) threshold- 0.8 (V) impedence- 558 (OHMS) 10V test, no diaphragmatic capture VENTRICULAR LEAD PARAMETERS: R wave- 25.0 (mV) Current- 0.6 (mA) threshold- 0.5 (V) impedence- 843 (OHMS) 10V test, no diaphragmatic capture DEVICE PARAMETERS: Mode- DDD Lower rate- 60 Upper rate- 120 CONCLUSIONS / RECOMMENDATIONS Device Conclusions: Successful implantation of a dual chamber pacemaker Device Recommendations: Follow up with Primary Care Physician PROCEDURE MEDICATIONS Fentanyl 50 mcg IV Versed 1 mg IV Fentanyl 25 mcg IV Oxygen: 2 L/min via nasal cannula Oxygen: 4 L/min via nasal cannula Antibiotic given in appropriate timeframe. Clindamycin 900 mg IV 01/11/2024 10:39:15 Signed By Alejandro Valerio MD On 01/11/2024 11:54:45 Alejandro Valerio MD
[2024-01-11] MEDS: Escitalopram Oxalate 10 MG Tablet PO (12:21)
[2024-01-11] MEDS: Clopidogrel Bisulfate 75 MG Tablet PO (12:21)
[2024-01-11] MEDS: Aspirin E.C. 81 MG Tablet PO (12:21)
[2024-01-11] MEDS: Lisinopril 10 MG Tablet PO (12:21)
[2024-01-11] MEDS: Acetaminophen 325 MG Tablet PO ×2 (12:21→21:17)
[2024-01-11] MEDS: Multivitamin (Healthy Eyes) Capsule 1 CAP PO (12:22)
[2024-01-11] MEDS: Cholecalciferol (VIT D3) 25 MCG TABLET (1,000 UNITS) PO (12:22)
[2024-01-11] MEDS: Atorvastatin Calcium 40 MG Tablet PO (21:17)
[2024-01-11] MEDS: hydrALAZINE 20 MG/ML Vial 10 MG IV (23:11)
[2024-01-12] VITALS (7 sets, daily range): BP systolic 130–183; BP diastolic 67–87; PULSE 63–77; RESP 16; TEMP 36.2–36.7; O2SAT 94–97; BMI 31.3
[2024-01-12] MEDS: Acetaminophen 325 MG Tablet PO ×2 (03:56→21:02)
--- NOTE | 2024-01-12 05:55 | RAD_ITS ---
EXAM: XR CHEST, 3 VIEWS CLINICAL INDICATION: Post permanant ICD/Pacemaker -- inspiration/expiration. Arms Down. Wet read to MD TECHNIQUE: AP upright inspiratory view, AP upright expiratory view, and lateral view of the chest. COMPARISON: Previous chest radiographs of 01/10/2024 and 08/07/2019. FINDINGS: LUNGS AND PLEURAL SPACES: Inspiratory and expiratory AP views show no pneumothorax. Lungs are mildly hyperinflated with pruning of the peripheral pulmonary vascular markings, suggestive of pulmonary emphysema. No effusion. No acute pulmonary infiltrates. HEART: Mild-moderate cardiomegaly is present, with normal pulmonary vasculature. MEDIASTINUM: Thoracic aorta is minimally elongated and calcific. BONES/JOINTS: Accentuated thoracic kyphosis. Osteophytes about the mid to lower thoracic disc spaces with lumbar degenerative disc disease. No acute fracture. SOFT TISSUES: Unremarkable. VASCULATURE: Thoracic aorta is minimally elongated and calcific. TUBES, LINES AND DEVICES: Cardiac pacemaker has been inserted, with the generator overlying the left upper chest laterally. Pacing leads extends to the region of the right atrium and right ventricular apex. RAD/Chest 3 View IMPRESSION: Interval placement of cardiac pacemaker. No pneumothorax. Electronically Signed: Cj Thomson MD at 6:25 EDT ,
--- NOTE | 2024-01-12 07:46 | PN.CARD_ITS ---
Subjective Subjective The patient seems somewhat confused about events occurring last evening. She was aware that she was taken to the radiology which was a accurate she had an mud analysis operator chest x-ray. Her chest x-ray did not show any evidence of pneumothorax and showed the pacemaker in place in the left infraclavicular region was leads in the right atrium and right ventricle. Telemetry shows that she is in sinus rhythm at 65 bpm with a bundle branch block appearance and occasionally is atrially sensed and ventricularly paced. A full pacemaker interrogation is pending at this time. Objective Data Vital Signs: Vital Signs Temp Pulse Resp BP Pulse Ox O2 Del Method O2 Flow Rate 97.5 F L 63 16 158/72 H 97 Room Air 2 01/12/24 02:15 01/12/24 02:15 01/12/24 02:15 01/12/24 02:15 01/12/24 02:15 01/12/24 02:21 01/10/24 19:00 Oxygen Flow Rate (L/min) 2 Oxygen Delivery Method Room Air Weight: 199 lb 11.821 oz Body Mass Index (BMI) 31.3 Intake & Output: Intake and Output for Last 24 Hours 01/10/24 01/11/24 01/12/24 23:59 23:59 23:59 Intake Total 440 / 440 1083 / 1083 Output Total 350 / 350 850 / 850 Balance 90 / 90 233 / 233 Lab / Micro Data Attestation: I reviewed the patient's lab results. 01/11/24 04:55 01/11/24 04:55 Rhythm Strip Rhythm Strip: Sinus Rhythm Rate: 68 Ectopy: None Cardiology Labs/Tests Rhythm: EKG: ECHO: Stress Test: Cardiac Cath: PCI: CT Surgery: Holter monitor: EPS: PPM: CXR: Chest CT Scan: Radiography Diagnostic Testing: Radiology Impression Chest X-Ray 01/12/24 05:55 IMPRESSION: Interval placement of cardiac pacemaker. No pneumothorax. Electronically Signed: Cj Thomson MD at 6:25 EDT , Physical Exam Const no apparent distress HEENT normocephalic Eyes EOMs intact bilaterally Neck no JVD Chest inspection of chest normal Chest Narrative: The pacemaker insertion site dressing is clean and dry. Chest: left pectoral incision Resp normal respiratory effort Resp Narrative: Anteriorly clear to auscultation bilaterally Cardio regular rate, regular rhythm, S1 normal heart sound, S2 normal heart sound, no r ub and no gallops Heart Sounds: murmur systolic II/ loud right sternal border Bruits: other Other Details: Right subclavian bruit. GI soft to palpation Skin no rashes or lesions noted Neuro Neuro Narrative: Alert but seems confused about events that occurred during the evening. Psych Psych Narrative: Grossly normal but confused about events during the evening. Assessment & Plan Assessment/Plan (1) Sick sinus syndrome: PLAN: Patient is status post permanent pacemaker implant yesterday. Chest x-ray shows no evidence of pneumothorax. The patient did have some mild confusion about events last p.m. of an uncertain etiology. PLAN: Plan From a cardiovascular standpoint no further evaluation is indicated at this point in time. The pacemaker will be interrogated today and monitored long-term through the [facility]. Charges/Coding Visit Charges Inpatient E&M: 94851 Subs Hosp L2
[2024-01-12] MEDS: Enoxaparin 40 MG/0.4 ML Syringe SC (08:35)
[2024-01-12] MEDS: Escitalopram Oxalate 10 MG Tablet PO (08:35)
[2024-01-12] MEDS: Multivitamin (Healthy Eyes) Capsule 1 CAP PO (08:35)
[2024-01-12] MEDS: Aspirin E.C. 81 MG Tablet PO (08:35)
[2024-01-12] MEDS: Lisinopril 10 MG Tablet PO (08:36)
[2024-01-12] MEDS: Clopidogrel Bisulfate 75 MG Tablet PO (08:36)
--- NOTE | 2024-01-12 10:10 | DCINST_ITS ---
Discharge Instructions Diet Discharge Diet: No restrictions (as you feel able. No excessive stretching. No lifting your arm over your head (keep elbow below shoulder level) until seen for your pacemaker check. Do not lift your elbow away from your side until you are seen for your first visit. Keep the arm sling on if it helps remind you not to lift your arm.) Activity Discharge Activity: May Not Drive May shower in (days): 2 Additional Activity Instructions:: May shower or bathe on [day 3]. Do not scrub the incision or soak in the tub. Just wash with soap and let the water run over the incision. Gently pat dry with towel. Medications: Take your pain medication as directed. Refer to your discharge instruction sheet for a list of medications you are to take. Dressing / Incision Call your doctor if your incision/area has: Continuous Slow Oozing, Sudden Increased Bleeding, Increased Pain/ Swelling, Increased Redness, Foul Smelling Discharge and Swelling at the incision site Call your doctor if you observe: Fever of 101 or Higher, Shortness of breath, Dizziness, Fainting spells, Swelling in the ankles, Chest pain, Prolonged hiccupping and Increased palpitations (irregular heartbeat) Suture Line Care: Avoid Pulling/Pushing and Avoid Pinching/Bending Cleanse incision/area with: Do not get Incision Wet and Keep Dressing Clean & Dry Additional Dressing/Incision Instructions:: When dressing is removed, wash and dry incision. Keep covered with a light bandage if it is rubbing against your clothing. Do not cover the incision with an airtight bandage. Change the bandage daily. Do not remove steri strips. The strips will fall off on their own. Follow Up Care Please Follow Up With: Alejandro Valerio MD When: Pacer follow-up on February at 1 PM. With the device nurse Raysa Napier. Test Results: Test results from this visit will be discussed in further detail at your follow- up appointment, if applicable. Discharge Plan Admission Admit Date/Time: 01/10/24 12:12 Attending Provider: Hi James Primary Care Provider: Giovana Lopez NP Consulting Providers: Vanessa Khan; Awais Tejada Discharge Orders/Prescriptions Prescriptions: No Action aspirin 81 mg tablet,delayed release (DR/EC) 81 mg PO DAILY cholecalciferol (vitamin D3) 25 mcg (1,000 unit) capsule 25 mcg PO DAILY escitalopram oxalate 10 mg tablet 10 mg PO DAILY PreserVision AREDS-2 250-90-40-1 mg capsule 1 tab PO ONCE nitroglycerin [Nitrostat] 0.4 mg tablet, sublingual 0.4 mg sublingual Q5-15M PRN (Reason: chest pain) Qty: 25 3RF Rx Instructions: do not exceed 3 doses per episode lisinopril 10 mg tablet 10 mg PO DAILY metoprolol succinate 25 mg tablet extended release 24 hr 25 mg PO DAILY Qty: 90 3RF clopidogrel 75 mg tablet 75 mg PO QDAY Qty: 90 3RF Rx Instructions: 75 PO QDAY atorvastatin 40 mg tablet See Rx Instructions .ROUTE .COMPLEX Qty: 90 3RF Dose Instruction: TAKE ONE TABLET BY MOUTH EVERY DAY AT BEDTIME Rx Instructions: TAKE ONE TABLET BY MOUTH EVERY DAY AT BEDTIME Referrals / Follow Up: Giovana Lopez NP, BILINGUAL MEDICAL RECEPTIONIST-C [Primary Care Provider] -
[2024-01-12] MEDS: Cholecalciferol (VIT D3) 25 MCG TABLET (1,000 UNITS) PO (10:50)
--- NOTE | 2024-01-12 11:10 | DCINST_ITS ---
Discharge Instructions Diet Discharge Diet: No restrictions (as you feel able. No excessive stretching. No lifting your arm over your head (keep elbow below shoulder level) until seen for your pacemaker check. Do not lift your elbow away from your side until you are seen for your first visit. Keep the arm sling on if it helps remind you not to lift your arm.) Activity Discharge Activity: Return to Normal Activity May shower in (days): 2 Weight Bearing Status: Full weight bearing Additional Activity Instructions:: May shower or bathe on [day 3]. Do not scrub the incision or soak in the tub. Just wash with soap and let the water run over the incision. Gently pat dry with towel. Medications: Take your pain medication as directed. Refer to your discharge instruction sheet for a list of medications you are to take. Dressing / Incision Call your doctor if your incision/area has: Continuous Slow Oozing, Sudden Increased Bleeding, Increased Pain/ Swelling, Increased Redness, Foul Smelling Discharge and Swelling at the incision site Call your doctor if you observe: Fever of 101 or Higher, Shortness of breath, Dizziness, Fainting spells, Swelling in the ankles, Chest pain, Prolonged hiccupping and Increased palpitations (irregular heartbeat) Suture Line Care: Avoid Pulling/Pushing and Avoid Pinching/Bending Cleanse incision/area with: Do not get Incision Wet and Keep Dressing Clean & Dry Additional Dressing/Incision Instructions:: When dressing is removed, wash and dry incision. Keep covered with a light bandage if it is rubbing against your clothing. Do not cover the incision with an airtight bandage. Change the bandage daily. Do not remove steri strips. The strips will fall off on their own. Follow Up Care Please Follow Up With: Alejandro Valerio MD Test Results: Test results from this visit will be discussed in further detail at your follow- up appointment, if applicable. Discharge Plan Admission Admit Date/Time: 01/10/24 12:12 Primary Reason for Your Visit: sick sinus syndrome Attending Provider: Hi James Primary Care Provider: Giovana Lopez NP Consulting Providers: Vanessa Khan; Awais Tejada Discharge Orders/Prescriptions Prescriptions: New lisinopril-hydrochlorothiazide [Zestoretic] 20-12.5 mg tablet 1 tab PO DAILY Qty: 30 1RF Continued aspirin 81 mg tablet,delayed release (DR/EC) 81 mg PO DAILY cholecalciferol (vitamin D3) 25 mcg (1,000 unit) capsule 25 mcg PO DAILY escitalopram oxalate 10 mg tablet 10 mg PO DAILY PreserVision AREDS-2 250-90-40-1 mg capsule 1 tab PO ONCE nitroglycerin [Nitrostat] 0.4 mg tablet, sublingual 0.4 mg sublingual Q5-15M PRN (Reason: chest pain) Qty: 25 3RF Rx Instructions: do not exceed 3 doses per episode metoprolol succinate 25 mg tablet extended release 24 hr 25 mg PO DAILY Qty: 90 3RF clopidogrel 75 mg tablet 75 mg PO QDAY Qty: 90 3RF Rx Instructions: 75 PO QDAY atorvastatin 40 mg tablet See Rx Instructions .ROUTE .COMPLEX Qty: 90 3RF Dose Instruction: TAKE ONE TABLET BY MOUTH EVERY DAY AT BEDTIME Rx Instructions: TAKE ONE TABLET BY MOUTH EVERY DAY AT BEDTIME Discontinued lisinopril 10 mg tablet 10 mg PO DAILY Referrals / Follow Up: Giovana Lopez NP, BEHAVIORAL INSTRUCTOR-C [Primary Care Provider] - Alejandro Valerio MD [Med Staff - Active Staff] - See Referral Note (As directed, office should call you within a week to schedule you for a follow-up appointment) Disposition Disposition (needs filled in before D/C Order can be placed): Home, Self Care
--- NOTE | 2024-01-12 11:20 | DS.PCM_ITS ---
Providers Date of Admission: 01/10/24 Date of Discharge: 01/12/24 Primary Care Physician: CAT Marrero Consultations 01/10/24 12:56 Consult: Cardiology Routine Consulting Provider: Awais Tejada Reason for Consult: bradycardia, syncope EMERGENT Consult: No MD Notified: Yes Date Notified: 01/10/24 Time Notified: 12:15 Method of Notification: Text Reason For Visit: syncope, HX OF RBB Diagnosis Discharge Diagnosis (1) Sick sinus syndrome: Status: Acute Code(s): I49.5 - Sick sinus syndrome Plan 1. Sick sinus syndrome-again patient will have a pacemaker inserted today #2 syncope-secondary to #1, again patient will need pacemaker placement #3 essential hypertension-patient is on lisinopril #4 coronary artery disease-this is stable at this time Total clinical time spent by myself addressing the patient's medical issues, reviewing all of her data, and collaborating with patient's care team: 35 minutes Medications at Discharge Home Medications cholecalciferol (vitamin D3) 25 mcg (1,000 unit) capsule 25 mcg PO DAILY vitamin 03/20/22 metoprolol succinate 25 mg tablet,extended release 24 hr 25 mg PO DAILY blood pressure #90 tabs 02/04/23 aspirin 81 mg tablet,delayed release 81 mg PO DAILY heart health 02/25/23 clopidogrel 75 mg tablet 75 mg PO QDAY anti platelet #90 tabs 03/17/23 atorvastatin 40 mg tablet See Rx Instructions .Route .COMPLEX cholesterol #90 tabs 04/15/23 escitalopram oxalate 10 mg tablet 10 mg PO DAILY mental health 05/21/23 nitroglycerin 0.4 mg sublingual tablet (Nitrostat) 0.4 mg sublingual Q5-15M PRN chest pain #25 tabs 05/21/23 vit C 250 mg-vit E 90 mg-zinc 40 mg-copper 1 cl-kruykp-tszsrj capsule (PreserVision AREDS-2) 1 tab PO ONCE supplement 05/21/23 lisinopril 20 mg-hydrochlorothiazide 12.5 mg tablet (Zestoretic) 1 tab PO DAILY #30 tabs 01/12/24 Hospital Course Procedures - (Pacemaker insertion) Summary of Care Provided Minutes Spent on Discharge: 32 Hospital Course: This 88-year-old white female was seen in the emergency room at [facility] after sustaining a syncopal episode at home, patient feels that she was out about 10 minutes, she woke up on her floor. Workup in the emergency room included a chest x-ray which showed cardiomegaly, head CT showed no acute disease, EKG showed a sinus rhythm with a right bundle branch block and a left anterior fascicular block. No signs of ischemia were noted. While in the ER, patient had an episode of bradycardia where her heart rate dropped into the 30s, patient complained that she felt as if she was going to pass out. This episode resolved and she was in a sinus rhythm at 75 bpm. Patient was admitted to PCU, she was seen in consultation by cardiology who noted the patient to have a 5-second pause on telemetry monitoring, cardiology recommended insertion of the pacemaker, patient underwent pacemaker insertion and there were no untoward events. On the day of discharge home, patient was weak and she was seen by p hysical therapy who felt that she would benefit from further physical therapy, made the decision to keep the patient in the hospital 1 more day and the following day the patient requested discharge to home and I felt she was stable to be discharged at that time. On 01/12/2024, patient was seen and examined: On examination she appeared in good health and spirits, she does not appear to be in any distress. Vital signs as documented. Skin warm and dry and without overt rashes. Neck without JVD, thyr oid appears normal, trachea is midline, neck is supple. Lungs clear, normal air movement was noted. Heart exam notable for regular rhythm, normal sounds and absence of murmurs, rubs or gallops. Abdomen unremarkable and without evidence of organomegaly, masses, or abdominal aortic enlargement, bowel sounds are present in all 4 quadrants, no abdominal tenderness was noted. Extremities nonedematous, no cyanosis was noted, no clubbing was noted. Neuro: Cranial nerves II through XII are grossly intact, no focal motor deficits were noted, sensation to light touch and pinprick is intact, motor exam 5/5 throughout. Psych: Patient is alert and oriented x3, she does not appear anxious or depressed, she does not appear agitated. Patient appears stable for discharge home on 01/12/2024 Weight / BMI Weight Weight: 90.6 kg Body Mass Index (BMI) 31.3 ABG / Lab / Microbiology Data 01/11/24 04:55 01/11/24 04:55 Radiography Diagnostic Testing: Radiology Impression Chest X-Ray 01/12/24 05:55 IMPRESSION: Interval placement of cardiac pacemaker. No pneumothorax. Electronically Signed: Cj Thomson MD at 6:25 EDT , D/C Instructions Discharge Diet: No restrictions (as you feel able. No excessive stretching. No lifting your arm over your head (keep elbow below shoulder level) until seen for your pacemaker check. Do not lift your elbow away from your side until you are seen for your first visit. Keep the arm sling on if it helps remind you not to lift your arm.) May shower in (days): 2 Weight Bearing Status: Full weight bearing Additional Activity Instructions: May shower or bathe on [day 3]. Do not scrub the incision or soak in the tub. Just wash with soap and let the water run over the incision. Gently pat dry with towel. Medications: Take your pain medication as directed. Refer to your discharge instruction sheet for a list of medications you are to take. Call your doctor if your incision/area has: Continuous Slow Oozing, Sudden Increased Bleeding, Increased Pain/ Swelling, Increased Redness, Foul Smelling Discharge and Swelling at the incision site Call your doctor if you observe: Fever of 101 or Higher, Shortness of breath, Dizziness, Fainting spells, Swelling in the ankles, Chest pain, Prolonged hiccupping and Increased palpitations (irregular heartbeat) Suture Line Care: Avoid Pulling/Pushing and Avoid Pinching/Bending Cleanse incision/area with: Do not get Incision Wet and Keep Dressing Clean & Dry Additional Dressing/Incision Instructions: When dressing is removed, wash and dry incision. Keep covered with a light bandage if it is rubbing against your clothing. Do not cover the incision with an airtight bandage. Change the bandage daily. Do not remove steri strips. The strips will fall off on their own. Please Follow Up With: Alejandro Valerio MD When: Pacer follow-up on Thursday, 17 February at 1 PM. With the device nurse Raysa Napier. Meaningful Use Info Meaningful Use Diagnoses (Choose all that apply): None applicable Discharge Plan Admission Admit Date/Time: 01/10/24 12:12 Primary Reason for Your Visit: sick sinus syndrome Attending Provider: Hi James Primary Care Provider: Giovana Lopez NP Consulting Providers: Vanessa Khan; Awais Tejada Instructions Additional Instructions / Restrictions: Do not take lisinopril?hydrochlorothiazide Resume your lisinopril 10 mg daily as before Discharge Orders/Prescriptions Prescriptions: New lisinopril-hydrochlorothiazide [Zestoretic] 20-12.5 mg tablet 1 tab PO DAILY Qty: 30 1RF Continued aspirin 81 mg tablet,delayed release (DR/EC) 81 mg PO DAILY cholecalciferol (vitamin D3) 25 mcg (1,000 unit) capsule 25 mcg PO DAILY escitalopram oxalate 10 mg tablet 10 mg PO DAILY PreserVision AREDS-2 250-90-40-1 mg capsule 1 tab PO ONCE nitroglycerin [Nitrostat] 0.4 mg tablet, sublingual 0.4 mg sublingual Q5-15M PRN (Reason: chest pain) Qty: 25 3RF Rx Instructions: do not exceed 3 doses per episode metoprolol succinate 25 mg tablet extended release 24 hr 25 mg PO DAILY Qty: 90 3RF clopidogrel 75 mg tablet 75 mg PO QDAY Qty: 90 3RF Rx Instructions: 75 PO QDAY atorvastatin 40 mg tablet See Rx Instructions .ROUTE .COMPLEX Qty: 90 3RF Dose Instruction: TAKE ONE TABLET BY MOUTH EVERY DAY AT BEDTIME Rx Instructions: TAKE ONE TABLET BY MOUTH EVERY DAY AT BEDTIME Discontinued lisinopril 10 mg tablet 10 mg PO DAILY Referrals / Follow Up: Alejandro Valerio MD [Med Staff - Active Staff] - See Referral Note (As directed, office should call you within a week to schedule you for a follow-up appointment) Giovana Lopez NP, SPORTS DEVELOPMENT OFFICER-C [Primary Care Provider] - Disposition Disposition (needs filled in before D/C Order can be placed): Home, Self Care Charges/Coding Visit Charges Inpatient E&M: 77613 Disch Hosp >30min
--- NOTE | 2024-01-12 13:25 | PHA.DC.MC.R ---
Pharmacy [facility] has performed discharge medication reconciliation and counseling for this patient. The patient's discharge medication list was reviewed for discrepancies and discrepancies were resolved. The patient was counseled on the following discharge medications and changes in medications for homegoing were reviewed. The Reason for Use, instructions for use, and potential side effects were reviewed for all new medications. The patient's questions regarding all of their medications were answered. 1. Lisinopril-hydrochlorothiazide 20-12.5 mg PO daily The patient was able to verbally demonstrate an understanding of their discharge medications. Medications at Discharge Home Medications cholecalciferol (vitamin D3) 25 mcg (1,000 unit) capsule 25 mcg PO DAILY vitamin 03/20/22 metoprolol succinate 25 mg tablet,extended release 24 hr 25 mg PO DAILY blood pressure #90 tabs 02/04/23 aspirin 81 mg tablet,delayed release 81 mg PO DAILY heart health 02/25/23 clopidogrel 75 mg tablet 75 mg PO QDAY anti platelet #90 tabs 03/17/23 atorvastatin 40 mg tablet See Rx Instructions .Route .COMPLEX cholesterol #90 tabs 04/15/23 escitalopram oxalate 10 mg tablet 10 mg PO DAILY mental health 05/21/23 nitroglycerin 0.4 mg sublingual tablet (Nitrostat) 0.4 mg sublingual Q5-15M PRN chest pain #25 tabs 05/21/23 vit C 250 mg-vit E 90 mg-zinc 40 mg-copper 1 dx-nxmhyc-epdpdr capsule (PreserVision AREDS-2) 1 tab PO ONCE supplement 05/21/23 lisinopril 20 mg-hydrochlorothiazide 12.5 mg tablet (Zestoretic) 1 tab PO DAILY #30 tabs 01/12/24
--- NOTE | 2024-01-12 14:38 | CASEMGMT ---
Therapy saw patient and they are recommending patient go to a SNF for rehab. SW met with patient. Introduced self and role at [facility]. SW spoke with patient about recommendations, but she is hesitant to go anywhere and would prefer to go home. SW provided patient with a list of long-term facility providers including quality and resource use data and consistent with patient?s preferred geographic region, medical needs, and insurance network were provided from the [employer] Guide. Patient was agreeable to go to TCU at [facility]. SW checked on bed availability and both units are now full. SW will talk with patient again. Leola Sanchez MEAT PRESS OPERATOR TAYA
--- NOTE | 2024-01-12 14:52 | CASEMGMT ---
SANDRA spoke with patient letting her know TCU and the Rehab Unit at [facility] are full. SW went over the other facilities on the list. Patient said she would rather go home. SW explained that right now therapy does not feel like she is physically strong enough to return home. Patient said her son can get her set up on the first floor. SW told patient we can see how she does with therapy tomorrow and go from there. Patient was agreeable to this plan. Leola BAIN
--- NOTE | 2024-01-12 16:12 | PN.HOSP_ITS ---
Reason for Visit Reason for Visit: Diagnoses Essential (primary) hypertension (01/10/24) Nonrheumatic aortic (valve) stenosis (01/10/24) Sick sinus syndrome (01/10/24) Cardiomegaly (01/10/24) Occlusion and stenosis of left carotid artery (01/10/24) Syncope and collapse (01/10/24) Subjective Subjective Patient was seen and examined today, from cardiology standpoint she is stable for discharge, she however had trouble ambulating and it was felt that she needed PT and OT and she will be reevaluated tomorrow for possible discharge, if this is not possible she may have to go to an extended care facility for short- term rehab services. Objective Data Objective Data Vital Signs: Vital Signs Temp Pulse Resp BP Pulse Ox O2 Del Method O2 Flow Rate 97.2 F L 75 16 130/71 H 94 Room Air 2 01/12/24 15:08 01/12/24 15:08 01/12/24 15:08 01/12/24 15:08 01/12/24 15:08 01/12/24 15:08 01/10/24 19:00 Oxygen Flow Rate (L/min) 2 Oxygen Delivery Method Room Air Weight: 90.6 kg Body Mass Index (BMI) 31.3 Intake & Output: Intake and Output for Last 24 Hours 01/10/24 01/11/24 01/12/24 23:59 23:59 23:59 Intake Total 440 / 440 1083 / 1083 Output Total 350 / 350 850 / 850 800 / 800 Balance 90 / 90 233 / 233 -800 / -800 Lab / Micro Data 01/11/24 04:55 01/11/24 04:55 Radiography Diagnostic Testing: Radiology Impression Carotid Duplex 01/10/24 18:28 Interpretation Summary Mild (<50%) stenosis right extracranial internal carotid. Moderate (50-69%) stenosis left extracranial internal carotid. Patent and antegrade vertebrals bilaterally. Ordering Physician: Awais Tejada Referring Physician: Giovana Lopez Performed By: Lilia Brown RVT Chest X-Ray 01/12/24 05:55 IMPRESSION: Interval placement of cardiac pacemaker. No pneumothorax. Electronically Signed: Cj Thomson MD at 6:25 EDT , Rhythm Strip Rhythm Strip: Sinus Rhythm Rate: 68 Ectopy: None Physical Exam Narrative alert, oriented x3, no apparent distress, average body habitus and healthy appearing General Appearance: cooperative, well kempt and well developed Orientation / Consciousness: awake, oriented to person, oriented to place and oriented to time HEENT normocephalic, head/scalp atraumatic and moist oral mucous membranes Eyes PERRL, EOMs intact bilaterally and conjunctivae normal Neck supple, no JVD, thyroid normal and no carotid bruits General: trachea midline Resp normal respiratory effort, no retractions, no use of accessory muscles and clear to auscultation bilaterally Auscultation: Negative for rales, rhonchi or wheezes Cardio regular rate, regular rhythm, S1 normal heart sound, S2 normal heart sound, no murmurs, no rub and no gallops GI normal to inspection, nondistended, normoactive bowel sounds, soft to palpation, non-tender and non-distended Extremity no clubbing, cyanosis or edema Skin no rashes or lesions noted General Skin Exam: no breakdown Neuro oriented x3, CN's II-XII intact bilaterally, moves all extremities, no focal motor deficits and no sensory deficits noted Sensorium / Orientation: awake and alert Speech: speech normal Psych affect normal Assessment & Plan Assessment/Plan (1) Sick sinus syndrome: PLAN: Plan 1. Sick sinus syndrome-postop day #1 pacemaker insertion, continue to monitor on telemetry #2 syncope-secondary to #1 #3 essential hypertension-patient is on lisinopril #4 coronary artery disease-this is stable at this time #5 acute debility-patient is being seen by PT and OT, there is a chance she may need to go to a longterm facility for inpatient rehab services, I will reevaluate the patient tomorrow Total clinical time spent by myself addressing the patient's medical issues, reviewing all of her data, and collaborating with patient's care team: 35 minutes Charges/Coding Visit Charges Inpatient E&M: 27306 Subs Hosp L2
[2024-01-12] MEDS: hydrALAZINE 20 MG/ML Vial 10 MG IV (21:01)
[2024-01-12] MEDS: Atorvastatin Calcium 40 MG Tablet PO (21:02)
[2024-01-12] MEDS: 0.9% Saline Lock 10 ML Syringe IV (21:04)
[2024-01-13] VITALS (7 sets, daily range): BP systolic 130–185; BP diastolic 68–85; PULSE 74–89; RESP 16–18; TEMP 36.4–36.7; O2SAT 96–98; BMI 31.4
[2024-01-13] MEDS: hydrALAZINE 20 MG/ML Vial 10 MG IV (03:12)
[2024-01-13] MEDS: Acetaminophen 325 MG Tablet PO (04:20)
[2024-01-13] MEDS: Ondansetron 4 MG/2 ML Vial IV (05:46)
[2024-01-13] MEDS: Metoprolol(XL)Succ 25 MG Tablet PO (06:36)
--- NOTE | 2024-01-13 08:16 | PCM.PN.CARD ---
Subjective Subjective I was called earlier this morning about supraventricular tachycardia on the telemetry. The patient had a couple episodes between 120 150 bpm. There is a warm up acceleration of the atrial rate with the pacemaker tracking the atrial tachycardia. This broke spontaneously. This appears to be related to the patient not receiving her metoprolol. Metoprolol was given early and reinstituted at her home dose. This does not appear to be pacemaker mediated tachycardia. The patient reports that she was unaware of any changes she denies any shortness of breath lightheadedness or chest tightness this occurred at 0500 hrs. and she was in bed. Objective Data Vital Signs: Vital Signs Temp Pulse Resp BP Pulse Ox O2 Del Method O2 Flow Rate 97.5 F L 86 18 130/68 H 96 Room Air 2 01/13/24 05:54 01/13/24 06:36 01/13/24 05:54 01/13/24 06:33 01/13/24 05:54 01/13/24 08:00 01/10/24 19:00 Oxygen Flow Rate (L/min) 2 Oxygen Delivery Method Room Air Weight: 199 lb 15.348 oz Body Mass Index (BMI) 31.4 Intake & Output: Intake and Output for Last 24 Hours 01/11/24 01/12/24 01/13/24 23:59 23:59 23:59 Intake Total 1083 / 1083 Output Total 850 / 850 800 / 800 200 / 200 Balance 233 / 233 -800 / -800 -200 / -200 Lab / Micro Data Attestation: I reviewed the patient's lab results. 01/11/24 04:55 01/11/24 04:55 Rhythm Strip Rhythm Strip: Sinus Rhythm Rate: 70 Ectopy: None Cardiology Labs/Tests Rhythm: EKG: ECHO: Stress Test: Cardiac Cath: PCI: CT Surgery: Holter monitor: EPS: PPM: CXR: Chest CT Scan: Radiography Diagnostic Testing: Radiology Impression Carotid Duplex 01/10/24 18:28 Interpretation Summary Mild (<50%) stenosis right extracranial internal carotid. Moderate (50-69%) stenosis left extracranial internal carotid. Patent and antegrade vertebrals bilaterally. Ordering Physician: Awais Tejada Referring Physician: Giovana Lopez Performed By: Lilia Brown RVT Physical Exam Const alert Orientation / Consciousness: awake HEENT normocephalic Eyes EOMs intact bilaterally Neck supple Chest inspection of chest normal Chest Narrative: Pacemaker bandages clean and dry. Resp normal respiratory effort and clear to auscultation bilaterally Cardio regular rate, regular rhythm, S1 normal heart sound, S2 normal heart sound, no rub and no gallops Heart Sounds: murmur systolic II/ harsh left sternal border and right sternal border to the neck GI soft to palpation Extremity no pedal edema Skin no rashes or lesions noted Neuro Neuro Narrative: Alert but appears to be slightly confused about timing of the events. Psych mental status grossly normal Assessment & Plan Assessment/Plan (1) Sick sinus syndrome: PLAN: Patient is status post permanent pacemaker in place which was implanted 48 hours ago. It appears to be functioning normally chest x-ray was clear yesterday. The bandage is clean and dry. (2) SVT (supraventricular tachycardia): PLAN: The patient developed SVT but she had not been on her beta-jose. We reinstituted metoprolol and the patient should be able to be transferred or discharged from the acute care setting from a cardiovascular standpoint. PLAN: Plan 1. The patient should follow-up with the [facility] per the previous arranged follow-up. 2. From a cardiovascular standpoint the patient can be cleared to be transferred to an extended care facility or our next site of nonacute care. Charges/Coding Visit Charges Inpatient E&M: 04953 Subs Hosp L2
[2024-01-13] MEDS: Escitalopram Oxalate 10 MG Tablet PO (09:09)
[2024-01-13] MEDS: Aspirin E.C. 81 MG Tablet PO (09:10)
[2024-01-13] MEDS: Cholecalciferol (VIT D3) 25 MCG TABLET (1,000 UNITS) PO (09:10)
[2024-01-13] MEDS: Lisinopril 10 MG Tablet PO (09:10)
[2024-01-13] MEDS: Clopidogrel Bisulfate 75 MG Tablet PO (09:10)
[2024-01-13] MEDS: Multivitamin (Healthy Eyes) Capsule 1 CAP PO (09:10)
[2024-01-13] MEDS: Enoxaparin 40 MG/0.4 ML Syringe SC (09:10)
--- NOTE | 2024-01-13 14:21 | CASEMGMT ---
Addendum entered by Lilia Medellin 01/13/24 15:02: BLAIR DEL CID received call back from [facility] and they are able to accept patient with planned start of care for tomorrow. BLAIR DEL CID updated patient, son, and discharge plan. Patient and son had no further questions or concenrs. Original Note: Patient has order for discharge. Therapy recommending additional therapy. BLAIR DEL CID in to discuss needs at discharge with patient, smith Sharma at bedside. Smith Sharma will be staying with patient tonight and then his sister arrives tomorrow and will be staying with patient for one week. BLAIR DEL CID discuss HHC with patient. A list of [facility] providers including quality and resource use data and consistent with the patient?s preferred geographical region, medical needs, and insurance network were provided from the [employer] Guide. Patient prefers [facility]. Patient states she has a cane at home. Patient and son had no further questions or concerns. BLAIR DEL CID called and made referral to [facility], awaiting acceptance.
== END 2024-01-13 16:04 | disposition home or self-care (01) | DRG 243 ==
LOC: ED 11:46 → PCU 12:20 → ICU 18:02 → PCU 01-11 18:28
PROVIDERS: Anesthesiology; Admitting Provider Student in an Organized Health Care Education/Training Program; Emergency Provider Emergency Medicine; PCP Nurse Practitioner Family; Visit Provider Internal Medicine
DX: I49.5 Sick sinus syndrome (principal); I45.2 Bifascicular block; E78.5 Hyperlipidemia, unspecified; I10 Essential (primary) hypertension; I35.0 Nonrheumatic aortic (valve) stenosis; I65.22 Occlusion and stenosis of left carotid artery; F32.A Depression, unspecified; I25.10 Atherosclerotic heart disease of native coronary artery without angina pectoris; I44.0 Atrioventricular block, first degree; Z79.02 Long term (current) use of antithrombotics/antiplatelets; Z66 Do not resuscitate; Z95.5 Presence of coronary angioplasty implant and graft; Z79.82 Long term (current) use of aspirin; Z95.0 Presence of cardiac pacemaker
CPT/HCPCS: 33208; 36415; 70450; 71045; 71047; 72125; 80048; 81001; 84484; 85025; 85610; 85730; 93005; 93880; 97162; 97166; 97530; 97535; 99152; 99153; 99285; J7030; J7050; A4216; C1894; J2405

== ENCOUNTER → 2024-03-23 | Outpatient (CLI) | payer MEDICARE, SELFPAY ==
--- NOTE | 2024-03-23 11:37 | VDUE_ITS ---
Reason For Study: R/O DVT Left Proximal Left jugular vein is spontaneous, widely patent, phasic, with no intraluminal echogenicity noted. Left subclavian vein is spontaneous, widely patent, phasic, with no intraluminal echogenicity noted. Left Arm Left axillary vein is spontaneous, patent, phasic, competent, compressible and demonstrates augmentation. Left brachial vein is compressible. Left cephalic vein is compressible. Left basilic vein is compressible. Left Lower Arm Left radial vein is compressible. Left ulnar vein is compressible. Patient Safety Preliminary report given to John SHELTON. VL/Venous Duplex US, Unilateral Interpretation Summary Deep veins of the left upper extremity are patent and compressible segmentally. There is no evidence of deep vein thrombosis. Superficial veins of the left upper extremity are patent and compressible segme ntally. There is no evidence of superficial vein thrombosis. Ordering Physician: Giovana Lopez Referring Physician: Giovana Lopez Performed By: Lilia Brown RVT ???
== END | disposition home or self-care (01) ==
LOC: CVS 11:35
PROVIDERS: PCP Nurse Practitioner Family; Referring Provider Nurse Practitioner Family; Visit Provider Nurse Practitioner Family
DX: R07.89 Other chest pain (principal)
CPT/HCPCS: 93971